=== PATIENT | male | born 1945 | race Caucasian/White ===

== ENCOUNTER 2022-11-13 08:52 | Outpatient (REF) | payer MEDICARE, SELFPAY ==
[2022-11-13 20:55] LABS: HCT 41.4 % (40.0-50.0); HGB 14.5 g/dL (13.5-17.5); MCV 89 fL (80-95); MPV 11.4 fL (8.0-11.0); Platelet Count 292 10^3/uL (130-400); RBC 4.68 10^6/uL (4.36-5.78); RDW-SD 38.5 fL; WBC 6.71 10^3/uL (4.4-10.8)
[2022-11-13 21:11] LABS: ALT 31 U/L (16-63); AST 22 U/L (15-37); Albumin 4.4 g/dL (3.4-5.0); Alkaline Phosphatase 77 U/L (46-116); Anion Gap 10.2 mmol/L (3-11); BUN 18 mg/dL (7-18); Bilirubin, Total 0.4 mg/dL (0.2-1.0); CO2 27.8 mmol/L (21.0-32.0); CREATININE 0.8 mg/dL (0.70-1.30); Calcium 9.1 mg/dL (8.5-10.1); Chloride 93 mmol/L (98-107); Estimated GFR 92.29 (mL/min/1.73m2); Glucose 99 mg/dL (74-106); Potassium 3.1 mmol/L (3.5-5.1); Sodium 131 mmol/L (136-145); Total Protein 7.5 g/dL (6.4-8.2)
[2022-11-14 20:13] LABS: PSA, Diagnostic <0.1 ng/mL (<=6.5)
== END 2022-11-14 08:53 | disposition home or self-care (01) ==
LOC: NCHCN 08:52
PROVIDERS: PCP Family Medicine; Visit Provider Family Medicine
DX: I10 Essential (primary) hypertension (principal); C61 Malignant neoplasm of prostate
CPT/HCPCS: 80053; 85027; 84153

== ENCOUNTER 2023-07-07 13:44 | Outpatient (REF) | payer MEDICARE, BC, SELFPAY ==
[2023-07-07 14:40] LABS: Abs Immature Grans 0.04 10^3/uL (0.0-0.06); Absolute Basophil Count 0.04 10^3/uL (0.0-0.2); Absolute Eosinophil Count 0.13 10^3/uL (0.0-0.7); Absolute Lymphocyte Count 1.01 10^3/uL (1.2-3.4); Absolute Neutrophil Count 3.04 10^3/uL (1.2-6.7); Basophils % 0.8; Eosinophils % 2.6; HCT 41.7 % (40.0-50.0); Immature Grans % 0.8; Lymphocytes % 20.4; MCV 86 fL (80-95); MPV 10.8 fL (8.0-11.0); Monocytes % 14.1; Neutrophils % 61.3; Platelet Count 269 10^3/uL (130-400); RBC 4.84 10^6/uL (4.36-5.78); RDW 12.4 % (11.8-14.1); RDW-SD 39.1 fL; WBC 4.96 10^3/uL (4.4-10.8)
[2023-07-07 14:58] LABS: ALT 31 U/L (16-63); AST 19 U/L (15-37); Albumin 4.4 g/dL (3.4-5.0); Alkaline Phosphatase 73 U/L (46-116); Anion Gap 10.4 mmol/L (3-11); BUN 15 mg/dL (7-18); Bilirubin, Total 0.5 mg/dL (0.2-1.0); CO2 29.6 mmol/L (21.0-32.0); CREATININE 0.7 mg/dL (0.70-1.30); Calcium 9.8 mg/dL (8.5-10.1); Chloride 95 mmol/L (98-107); Estimated GFR 95.49 (mL/min/1.73m2); Glucose 110 mg/dL (74-106); Potassium 3.5 mmol/L (3.5-5.1); Sodium 135 mmol/L (136-145); Total Protein 7.7 g/dL (6.4-8.2)
[2023-07-07 22:57] LABS: PSA, Diagnostic <0.1 ng/mL (<=6.5)
== END 2023-07-07 13:45 | disposition home or self-care (01) ==
LOC: NCHCN 13:44
PROVIDERS: PCP Family Medicine; Visit Provider Family Medicine
DX: I10 Essential (primary) hypertension (principal); C61 Malignant neoplasm of prostate
CPT/HCPCS: 80053; 84153; 85025

== ENCOUNTER 2023-11-24 13:33 | Emergency (ER) | payer MEDICARE, BC, SELFPAY ==
[2023-11-24] VITALS (21 sets, daily range): BP systolic 137–172; BP diastolic 70–100; PULSE 88–124; RESP 18; TEMP 37.7; O2SAT 92–98
[2023-11-24] MEDS: Lidocaine 2% Jelly 6 ML SYR (14:06)
[2023-11-24 14:55] LABS: Bilirubin Negative (Negative); Blood Small (Negative); Clarity Turbid (Clear); Glucose Negative (Negative); Ketones Negative (Negative); Leukocyte Esterase Negative (Negative); Nitrite Negative (Negative); Specific Gravity 1.025 (1.005-1.025); Urobilinogen 0.2 mg/dL (Up to 0.2)
[2023-11-24 14:58] LABS: C & S Indicated? Yes; RBC >50 HPF (0-2)
--- OUTSIDE RECORDS SUMMARY | 2023-11-24 15:15 | XMS_ITS | Data Portability ---
Author Organization [place] - [facility] Address [place] [address] Assessment No assessment recorded. Plan of Treatment Reminders Order Date Submit Date Provider Last Modified By Organization Details Last Modified Time Details Appointments Annual Chronic Care (65+) 30 2024 10:50A M Not available Not available Not available Lab PSA, serum or plasma 2023 024 [facility] (Registration ), [address] [place] [address] [place], [address], 07/08/2023 08:27:46 CBC w/ auto diff - drawn in office. 1 yellow and 1 purple drawn 2023 024 [facility] (Registration ), [address] [place] [address] [place], [address], 07/07/2023 14:42:16 CMP, serum or plasma 2023 024 [facility] (Registration ), [address] [place] [address] [place], [address], 07/07/2023 15:02:17 Referral None recorded. Procedures colonosco py screening (PROC) 2023 024 [facility] Surgery, [address] [place] [address] [place], [address], 11/12/2023 14:20:37 Surgeries None recorded. Imaging None recorded. Medication Orders None recorded. Patient TargetsNo targets recorded. Patient InstructionsNo instructions recorded. Reason for Referral None Reported. Results Created Date Observation Date Name Description Value Unit Range Abnormal Flag Note LastModifiedBy Organization Detail LastModifiedTime 07/07/19 24 07/07/2023 COMPL ETE BLOOD COUNT W/DIF F WBC 4.96 10_3/ uL 4.4-10 .8 normal Not Available [address] [place], [address] 07/07/2023 14:42:16 07/07/19 24 07/07/2023 COMPL ETE BLOOD COUNT W/DIF F RBC 4.84 10_6/ uL 4.36-5 .78 normal Not Available [address] [place], [address] 07/07/2023 14:42:16 07/07/19 24 07/07/2023 COMPL ETE BLOOD COUNT W/DIF F HGB 15.0 g/dL 13.5-1 7.5 normal Not Available [address] [place], [address] 07/07/2023 14:42:16 07/07/19 24 07/07/2023 COMPL ETE BLOOD COUNT W/DIF F HCT 41.7 % 40.0-5 0.0 normal Not Available [address] [place], [address] 07/07/2023 14:42:16 07/07/19 24 07/07/2023 COMPL ETE BLOOD COUNT W/DIF F MCV 86 fL 80-95 normal Not Available [address] [place], [address] 07/07/2023 14:42:16 07/07/19 24 07/07/2023 COMPL ETE BLOOD COUNT W/DIF F MCH 31.0 pg 27.0-3 3.0 normal Not Available [address] [place], [address] 07/07/2023 14:42:16 07/07/19 24 07/07/2023 COMPL ETE BLOOD COUNT W/DIF F MCHC 36.0 % 32.0-3 6.0 normal Not Available [address] [place], [address] 07/07/2023 14:42:16 07/07/19 24 07/07/2023 COMPL ETE BLOOD COUNT W/DIF F RDW 12.4 % 11.8-1 4.1 normal Not Available [address] [place], [address] 07/07/2023 14:42:16 07/07/19 24 07/07/2023 COMPL ETE BLOOD COUNT W/DIF F platelet count 269 10_3/ uL 130-40 0 normal Not Available [address] [place], [address] 07/07/2023 14:42:16 07/07/19 24 07/07/2023 COMPL ETE BLOOD COUNT W/DIF F MPV 10.8 fL 8.0-11 .0 normal Not Available [address] [place], [address] 07/07/2023 14:42:16 07/07/19 24 07/07/2023 COMPL ETE BLOOD COUNT W/DIF F neutrophils % 61.3 Not Available [address] [place], [address] 07/07/2023 14:42:16 07/07/19 24 07/07/2023 COMPL ETE BLOOD COUNT W/DIF F lymphocytes % 20.4 Not Available [address] [place], [address] 07/07/2023 14:42:16 07/07/19 24 07/07/2023 COMPL ETE BLOOD COUNT W/DIF F monocytes % 14.1 Not Available [address] [place], [address] 07/07/2023 14:42:16 07/07/19 24 07/07/2023 COMPL ETE BLOOD COUNT W/DIF F eosinophils % 2.6 Not Available [address] [place], [address] 07/07/2023 14:42:16 07/07/19 24 07/07/2023 COMPL ETE BLOOD COUNT W/DIF F basophils % 0.8 Not Available [address] [place], [address] 07/07/2023 14:42:16 07/07/19 24 07/07/2023 COMPL ETE BLOOD COUNT W/DIF F immature grans % 0.8 Not Available [facility] [address] [place], [address] 07/07/2023 14:42:16 07/07/19 24 07/07/2023 COMPL ETE BLOOD COUNT W/DIF F nucleated RBC 0.0 % 0.0-0. 3 normal Not Available [address] [place], [address] 07/07/2023 14:42:16 07/07/19 24 07/07/2023 COMPL ETE BLOOD COUNT W/DIF F absolute neutrophil count 3.04 10_3/ uL 1.2-6. 7 normal Not Available [address] [place], [address] 07/07/2023 14:42:16 07/07/19 24 07/07/2023 COMPL ETE BLOOD COUNT W/DIF F absolute lymphocyte count 1.01 10_3/ uL 1.2-3. 4 low Not Available [address] [place], [address] 07/07/2023 14:42:16 07/07/19 24 07/07/2023 COMPL ETE BLOOD COUNT W/DIF F absolute monocyte count 0.70 10_3/ uL 0.1-0. 8 normal Not Available [address] [place], [address] 07/07/2023 14:42:16 07/07/19 24 07/07/2023 COMPL ETE BLOOD COUNT W/DIF F absolute eosinophil count 0.13 10_3/ uL 0.0-0. 7 normal Not Available [address] [place], [address] 07/07/2023 14:42:16 07/07/19 24 07/07/2023 COMPL ETE BLOOD COUNT W/DIF F absolute basophil count 0.04 10_3/ uL 0.0-0. 2 normal Not Available [address] [place], [address] 07/07/2023 14:42:16 07/07/19 24 07/07/2023 COMPR EHENS FRANCO METAB OLIC PANEL calcium 9.8 mg/dL 8.5-10 .1 normal Not Available [address] [place], [address] 07/07/2023 15:02:16 07/07/19 24 07/07/2023 COMPR EHENS FRANCO METAB OLIC PANEL glucose 110 mg/dL 74-106 high Not Available Arnoldo pennington [address] [place], [address] 07/07/2023 15:02:16 07/07/19 24 07/07/2023 COMPR EHENS FRANCO METAB OLIC PANEL BUN 15 mg/dL 7-18 normal Not Available Arnoldo rn [address] [place], [address] 07/07/2023 15:02:16 07/07/19 24 07/07/2023 COMPR EHENS FRANCO METAB OLIC PANEL creatinine 0.7 mg/dL 0.70-1 .30 normal Not Available [address] [place], [address] 07/07/2023 15:02:16 07/07/19 24 07/07/2023 COMPR EHENS FRANCO METAB OLIC PANEL estimated GFR 95.49 mL/min /1.73m 2 The eGFR is calcu lated from a serum creat inine using the CKD-E PI 2020 equat ion. Other varia bles requi red for the equat ion are gende r and age; this equat ion does not inclu de a race coeff icien t. This equat ion has simil ar overa ll perfo rmanc e to previ ous equat ions excep t value s may diffe r, in parti cular , in patie nts with highe r value s of eGFR and young er-ag ed adult s. Not Available [address] [place], [address] 07/07/2023 15:02:16 07/07/19 24 07/07/2023 COMPR EHENS FRANCO METAB OLIC PANEL total protein 7.7 g/dL 6.4-8. 2 normal Not Available [address] [place], [address] 07/07/2023 15:02:16 07/07/19 24 07/07/2023 COMPR EHENS FRANCO METAB OLIC PANEL albumin 4.4 g/dL 3.4-5. 0 normal Not Available [address] [place], [address] 07/07/2023 15:02:16 07/07/19 24 07/07/2023 COMPR EHENS FRANCO METAB OLIC PANEL bilirubin, total 0.5 mg/dL 0.2-1. 0 normal Not Available [address] [place], [address] 07/07/2023 15:02:16 07/07/19 24 07/07/2023 COMPR EHENS FRANCO METAB OLIC PANEL alk phos 73 U/L 46-116 normal Not Available [address] [place], [address] 07/07/2023 15:02:16 07/07/19 24 07/07/2023 COMPR EHENS FRANCO METAB OLIC PANEL sodium 135 mmol/ L 136-14 5 low Not Available [address] [place], [address] 07/07/2023 15:02:16 07/07/19 24 07/07/2023 COMPR EHENS FRANCO METAB OLIC PANEL potassium 3.5 mmol/ L 3.5-5. 1 normal Not Available [address] [place], [address] 07/07/2023 15:02:16 07/07/19 24 07/07/2023 COMPR EHENS FRANCO METAB OLIC PANEL chloride 95 mmol/ L 98-107 low Not Available [address] [place], [address] 07/07/2023 15:02:16 07/07/19 24 07/07/2023 COMPR EHENS FRANCO METAB OLIC PANEL CO2 29.6 mmol/ L 21.0-3 2.0 normal Not Available [address] [place], [address] 07/07/2023 15:02:16 07/07/19 24 07/07/2023 COMPR EHENS FRANCO METAB OLIC PANEL anion gap 10.4 mmol/ L 3-11 normal Not Available [address], [place], [address] 07/07/2023 15:02:16 07/07/19 24 07/07/2023 COMPR EHENS FRANCO METAB OLIC PANEL AST 19 U/L 15-37 normal Not Available Arnoldo pennington [address] [place], [address] 07/07/2023 15:02:16 07/07/19 24 07/07/2023 COMPR EHENS FRANCO METAB OLIC PANEL ALT 31 U/L 16-63 normal Not Available Arnoldo pennington [address] [place], [address] 07/07/2023 15:02:16 07/07/19 24 07/07/2023 PSA, DIAGN OSTIC PSA, diagnostic <0.1 NG/mL <=6.5 NOTE: Serum PSA tiffanie ntrat ion shoul d not be inter prete d as absol neeraj evide nce for the prese nce or absen ce of john peña se. Assay ed on Sieme ns ADVIA Centa ur XPT using chemi lumin escen t techn ology . Value s obtai mel by using diffe rent assay metho ds canno t be used inter gama eably . Test perfo rmed or refer red by [facility] [address], [place] [address] Not Available [address] [place], [address] 07/08/2023 08:27:46 Result Notes None recorded. Problems Name Problem SNOMED Code Status Onset Date Resolution Date Notes Provider Name and Address Organization Details Recorded Time Malignan t tumor of prostate 682593223 Active 2016 Prostate ctomy 2017, radiatio n treatmen t Roberto house, [facility]. 4 18:31:55 Essentia l hyperten matias 38201998 Active [address], [place], [address] , [facility]. 4 09:06:26 Arron 306670676 Active 2016 [facility] 4 18:32:05 Erectile dysfunct ion 456338028 Active [address], [facility] [address] [place] [address] 4 09:06:42 Insomnia 387233711 [facility] 2022 [facility] 4 18:31:37 Gastro-e sophagea l reflux disease with esophagi tis 245739649 Active [address], [facility] [address] [place] [address] 4 09:06:34 Adult health examinat ion Active [address], [facility] [address] , [facility] 4 09:06:19 Long-ter m current use of drug therapy 974406200 Completed 202211/16/2022 Problem Code: Z79.899; Problem Code Type: ICD-10; Not Available [facility] 3 05:24:57 Wrist joint pain 302708079 Completed 202211/16/2022 Problem Code: M25.539; Problem Code Type: ICD-10; Not Available [facility] 3 05:24:57 Hypokale drew 28962439 Completed 201611/16/2022 Problem Code: E87.6; Problem Code Type: ICD-10; MD Bra[address]io [address], [facility] [address] , [facility] 4 09:06:31 Hypokale drew 82802029 Active [address], [facility] [address] , [facility] 4 09:06:31 Problem Notes None recorded. Medical Equipment None Reported. Allergies Allergen ID Allergen Name Allergen Category Reaction Reaction Severity Criticality Documentation Date Start Date Code Code System Note Provider Name and Address Organization Details Recorded Time 17261 Bactrim medicatio n Not available Not available Not available 01/30/20232016 61984 9 RxNorm Not Available [facility] 3 16:18:51 Medications Name Sig Start Date Stop Date Status Note LastModified by Organization Details LastModified Time lisinopril 20 mg tablet TAKE 1 TABLET BY MOUTH TWICE DAILY active Not Available Not Available No t Available amlodipine 5 mg tablet TAKE 1 TABLET BY MOUTH TWICE DAILY active Not Available Not Available No t Available aspirin 81 mg tablet,maddison yed release Take 1 tab by mouth daily 11/13 completed Not Available Not Available Not Available potassium chloride ER 20 mEq tablet,exte nded release(par t/cryst) TAKE 1 & 1/2 (ONE & ONE-HALF) BY MOUTH ONCE DAILY active Not Available Not Available No t Available pantoprazol e 40 mg tablet,maddison yed release TAKE 1 TABLET BY MOUTH ONCE DAILY active Not Available Not Available No t Available triamterene 75 mg-hydrochl orothiazide 50 mg tablet TAKE 1 TABLET BY MOUTH ONCE DAILY active Not Available Not Available No t Available metronidazo le 0.75 % topical gel once a day 2016 active Not Available Not Available Not Avai lable azelaic acid 15 % topical gel 1 a small amount to affected area once a day active Not Available Not Available No t Available meclizine 50 mg as needed 07/06 completed Not Available Not Available Not Available potassium chloride ER 20 mEq tablet,exte nded release TAKE 1 & 1/2 (ONE & ONE-HALF) TABLETS BY MOUTH ONCE DAILY active Not Available Not Available No t Available Vitals Date Recorded Body height Body mass index (BMI) Body weight Body temperature Oxygen saturation Oxygen saturation in Arterial blood by Pulse oximetry Heart rate Systolic blood pressure Diastolic blood pressure Provider Name and Address Organization Details Last Updated DateTime 4 182.88 cm 27.5 kg/m2 30391.2 5 g 97.8 [degF] 98 % 98 % 78 /min 138 mm[Hg] 78 mm[Hg] YASMANY TORRES MA [facility] 08:58:54 Social History Question Answer Notes LastModified by Organization Details LastModified Time Tobacco Smoking Status Never Smoker YASMANY TORRES MA null, [facility] 07/07/2023 09:00:01 Are You Currently Employed? No [employer], [employer] Information not available 07/07/2023 What Type Of Diet Are You Following? REGULAR Information not available 07/07/2023 What Do You Do For Fun? Hang With [employer] Information not available 07/07/2023 Would You Say That, In General, Your Health Is Very Good Information not available 07/07/2023 How Often Does Anyone, Including Family, Physically Hurt You? Never Information not available 07/07/2023 How Often Does Anyone, Including Family, Insult Or Talk Down To You? Never Information not available 07/07/2023 How Often Does Anyone, Including Family, Threaten You With Harm? Never Information not available 07/07/2023 How Often Does Anyone, Including Family, Scream Or Curse At You? Never Information not available 07/07/2023 Within The Past 12 Months, You Worried That Your Food Would Run Out Before You Got Money To Buy More. Never True Information not available 07/07/2023 Within The Past 12 Months, The Food You Bought Just Didn't Last And You Didn't Have Money To Get More. Never True Information not available 07/07/2023 How Hard Is It For You To Pay For The Very Basics Like Food, Housing, Medical Care, And Heating? Would You Say It Is: Not Hard At All Information not available 07/07/2023 In The Past 12 Months, Has Lack Of Reliable Transportation Kept You From Medical Appointments, Meetings, Work Or From Getting Things Needed For Daily Living? No Information not available 07/07/2023 What Is Your Housing Situation Today? I Have Housing. Information not available 07/07/2023 Who Do You Live With? Girlfriend Information not available 07/07/2023 How Often In The Past Year Have You Used Marijuana (including Smoking, Vaping, Dabbing, Or Edibles)? Never Information not available 07/07/2023 How Often In The Past Year Have You Used Prescription Medications That Were Not Prescribed To You? Never Information not available 07/07/2023 How Often In The Past Year Have You Taken Your Own Prescription Medication More Than The Way It Was Prescribed Or For Different Reasons Than Its Intended Purpose? Never Information not available 07/07/2023 How Often In The Past Year Have You Used Other Drugs (for Example, Heroin, Cocaine, Meth, Salvia, Inhalants)? Never Information not available 07/07/2023 Have You Ever Used IV Drugs? No Information not available 07/07/2023 Date Of Most Recent SBINS 07/07/2023 Information not available 07/07/2023 What Was The Date Of Your Most Recent Tobacco Screening? 07/07/2023 Information not available 07/07/2023 What Is Your Relationship Status? Domestic Partner Information not available 07/07/2023 Are You Currently In School? No Information not available 07/07/2023 Do You Have Any Dietary Restrictions? No Information not available 07/07/2023 Sex: Male Functional Status Question Answer Note LastModified by Organizat ion Details LastModified Time What is your exercise level? Occasional Information not available 07/07/2023 Mental Status None recorded. Family History Relationship Description Onset Age of this Age Resolved Age Notes Brother Family history of acute medical disorder primary sclerosi ng choleangitis Mother Family history of acute medical disorder suicide at 55 Father Family history of kidney disease Notes:*Problem: 0 Medical History No medical history recorded. Immunizations Vaccine Type Date Status Provider Name and Address Organization Details Recorded Time Tdap 07/21/2017 completed Not Available [facility] 05:19:19 Tdap 09/15/2016 completed Not Available [facility] 05:19:19 Pneumococcal Conjugate, unspecified formulation 08/16/2013 completed Not Available [facility] 01/30/2023 05:19:20 SARS-COV-2 (COVID-19) vaccine, UNSPECIFIED 05/22/2020 completed Not Available [facility] 01/30/2023 05:19:22 SARS-COV-2 (COVID-19) vaccine, UNSPECIFIED 06/20/2020 completed Not Available [facility] 01/30/2023 05:19:22 SARS-COV-2 (COVID-19) vaccine, UNSPECIFIED 07/08/2021 completed Not Available [facility] 01/30/2023 05:19:22 SARS-COV-2 (COVID-19) vaccine, UNSPECIFIED 10/01/2020 completed Not Available [facility] 01/30/2023 05:19:22 pneumococcal polysaccharide PPV23 03/23/2011 completed Not Available [facility] 2022 05:19:22 pneumococcal polysaccharide PPV23 01/27/2008 completed Not Available [facility] 2022 05:19:23 influenza, unspecified formulation 11/22/2015 completed Not Available [facility] 01/30/2023 05:19:23 influenza, unspecified formulation 03/04/2021 completed Not Available [facility] 01/30/2023 05:19:23 Past Encounters Encounter ID Performer Location Encounter Start Date Encounter Closed Date Diagnosis/Indication Diagnosis SNOMED-CT Code Diagnosis ICD10 Code [id number] SHARON ALVARADO MD [address] [address] 07/07/2023 08:44:10 07/07/2023 11:47:02 Adult health examination 994078537 Z00.00 Essential hypertension 81062959 I10 Hypokalemia 79482642 E87 .6 Gastro-eso phageal reflux disease with esophagitis 288172483 K21.00 Malignant tumor of prostate 927091627 C61 Rosacea 457259834 L71.9 Health Concerns Section Related Observation LastModified by Organization Detai ls LastModified Time None Recorded Concern Status LastModified by Organization Details LastModified Time None Recorded Advance Directives Directive None Recorded Payers Encounter Date Sequence Insurance Name Policy Number Policy Barr Covered Member ID Barr Member ID Guarantor Name 07/07/2023 1 [place]: [employer] Jose Rodriguez [id number] Jose Rodriguez 07/07/2023 2 [facility] [facility] [id number] Jose Rodriguez [id number] Jose Rodriguez Notes Date Note Type Note Provider Name and Address Organization Details Recorded Time 07/07/2023 text/html HPI Notes: Job nt here for his annual preventive visit and follow-up for his chronic issues including hypertension reflux. It turns out are attempted to switch him from Dyazide to triamterene failed because of extreme colmenares issues. He has continued on his Dyazide. He is due for annual labs including his potassium. Past history of prostate cancer, it appears no one is following his PSAs will run that as well. SHARON ALVARADO MD [address], [place], [address], [facility]. 07/10/2023 20:46:12
--- NOTE | 2023-11-24 15:30 | W.ED.GENAD ---
Discharge Plan Disposition Patient Disposition: Home Condition: Stable Discharge Details Clinical Impression: Hematuria Primary Care Provider: Joceline Starr ED Provider: Jake Mallory Home Meds and New Rx's Prescriptions: No Action lisinopril 20 mg tablet 20 mg PO BID amlodipine 5 mg tablet 5 mg PO BID aspirin 81 mg tablet,delayed release (DR/EC) 81 mg PO DAILY potassium chloride 20 mEq tablet extended release 30 meq PO DAILY pantoprazole 40 mg tablet,delayed release (DR/EC) 40 mg PO DAILY triamterene-hydrochlorothiazid 75-50 mg tablet 1 tab PO DAILY metronidazole 0.75 % cream 1 applic topical DAILY azelaic acid 15 % gel 1 applic topical BID Discharge Instructions Instructions: How to Care for Your Oh Catheter, Blood in Urine (Hematuria), Adult ED Additional Instructions: The blood in your bladder may clot and prevent outflow of your urine, if this occurs, he should return to the emergency department for irrigation and reevaluation Urology clinic will contact you for follow-up HPI General Date/Time Provider Initiated Documentation: 11/24/23 13:43. Limitations to Documentation: no limitations. Information obtained by: patient. HPI Narrative: 78-year-old gentleman with past medical history including hypertension, prostate malignancy (s/p removal and radiation therapy) presents for evaluation of hematuria. He reports the symptoms started today. He reports that he was able to urinate normally this morning, and then later he was unable to go. He had a little blood come out. He states that he feels like his bladder is full but he cannot pass anything. Denies any fever or chills. When he got into the room, he states that he did have some release of urine and blood and states that he does feel a little bit better Related Data Home Medications ?Medication ?Instructions ?Recorded ?Confirmed amlodipine 5 mg tablet 5 mg PO BID 08/04/23 11/24/23 aspirin 81 mg tablet,delayed 81 mg PO DAILY 08/04/23 11/24/23 release azelaic acid 15 % topical gel 1 applic topical BID 08/04/23 11/24/23 lisinopril 20 mg tablet 20 mg PO BID 08/04/23 11/24/23 metronidazole 0.75 % topical cream 1 applic topical DAILY 08/04/23 11/24/23 pantoprazole 40 mg tablet,delayed 40 mg PO DAILY 08/04/23 11/24/23 release potassium chloride 20 mEq 30 meq PO DAILY 08/04/23 11/24/23 tablet,extended release triamterene 75 1 tab PO DAILY 08/04/23 11/24/23 mg-hydrochlorothiazide 50 mg tablet Allergies Allergy/AdvReac Type Severity Reaction Status Date / Time sulfamethoxazole (From Allergy Unknown unknown Verified 11/24/23 13:39 Bactrim) trimethoprim (From Bactrim) Allergy Unknown unknown Verified 11/24/23 13:39 General Stated Complaint: Urinary MIKEL: 3 Exam Narrative Exam Narrative: Review of Systems: All systems reviewed & are unremarkable except as noted in HPI and below Well-developed, no acute distress Unlabored respiratory effort Nondistended abdomen , mild suprapubic tenderness : blood in diaper noted, no blood at urethral meatus Course Vital Signs Vital signs: Vital Signs Temperature 37.7 C H 11/24/23 13:37 Pulse 124 H 11/24/23 13:37 Respiratory Rate 18 11/24/23 13:37 Blood Pressure 172/83 H 11/24/23 13:37 Pulse Oximetry 97 11/24/23 13:37 Temperature 37.7 C H 11/24/23 13:37 Temperature Source Skin 11/24/23 13:37 Pulse 97 H 11/24/23 14:36 Pulse 104 H 11/24/23 14:10 Respiratory Rate 18 11/24/23 13:37 Blood Pressure 147/80 H 11/24/23 14:36 Blood Pressure Mean 103 11/24/23 14:36 Blood Pressure Position Sitting 11/24/23 13:37 Pulse Oximetry 95 11/24/23 14:36 Oxygen Delivery Method Room Air 11/24/23 13:37 Oxygen Flow Rate 0 11/24/23 13:37 Pain Level 8 11/24/23 13:37 Lab/Test Results Lab/Test Results: 11/24/23 14:35 Urine - Reflex from Ua Urine Culture - Pending Laboratory Tests Range/Units 11/24/23 14:35 Urine Color (Yellow) Red Urine Clarity (Clear) Turbid Urine pH (5-8) 7.0 Ur Specific [place] (1.005-1.025) 1.025 Urine Protein (Neg-Trace) mg/dL 100 H Urine Ketones (Negative) mg/dL Negative Urine Blood (Negative) Small H Urine Nitrite (Negative) Negative Urine Bilirubin (Negative) Negative Urine Urobilinogen (Up to 0.2) mg/dL 0.2 Ur Leukocyte Esterase (Negative) Negative Urine RBC (0-2) HPF >50 H Urine WBC Not Applicable Ur Epithelial Cells Not Applicable Urine Crystals Not Applicable Urine Bacteria Not Applicable Urine Mucus Not Applicable Ur Culture Indicated? Yes Urine Glucose (Negative) mg/dL Negative Medical Decision Making Emergent evaluation of hematuria. Patient does have significant prostate malignancy history. He does report having some postradiation lesions that required cautery. He is not on any anticoagulant, states he is noncompliant with daily aspirin. There is blood noted in his diaper, but he is unable to spontaneously void so Oh catheter will be placed patient will be monitored. Patient reports improvement in symptoms after Oh catheter placement. Has a nontender abdomen. His urinalysis was reviewed, he does have significant blood, but no other signs concerning for infection. Bladder was irrigated to a light pink and patient has very clear return precautions for guarding clotting and catheter malfunction. Given his high risk and need for cystoscopy, the patient has been placed on urology follow-up, and I have requested that he be seen in the next 1 to 2 days. The urology clinic will contact the patient with his appointment. Patient states that he feels great now and I have advised close follow-up and return precautions. Quality:SDOH Health Related Social Needs: No Data to Display PFSH All Active Problems (Updated 11/24/23 @ 15:36 by Jake Mallory MD) Hematuria (Acute) Essential hypertension (Acute) Malignant tumor of prostate (Chronic) Medical History GERD (gastroesophageal reflux disease) Insomnia Erectile dysfunction Rosacea Social History Smoking risk assessment performed?: No
== END 2023-11-24 15:54 | disposition home or self-care (01) ==
PROVIDERS: Emergency Provider Emergency Medicine; PCP Family Medicine
DX: R33.8 Other retention of urine (principal); R31.9 Hematuria, unspecified
CPT/HCPCS: 51700; 99284; 81003; 81015; 87086; 99283

== ENCOUNTER 2023-11-25 02:15 | Emergency (ER) | payer MEDICARE, BC, SELFPAY ==
[2023-11-25] VITALS (17 sets, daily range): BP systolic 128–180; BP diastolic 64–92; PULSE 66–88; RESP 16–22; TEMP 36.5–36.8; O2SAT 97–98
--- NOTE | 2023-11-25 02:19 | W.ED.GENAD ---
Discharge Plan Discharge Details Chief Complaint: Urinary Clinical Impression: Hematuria, Guillen catheter problem, Hypokalemia, Chronic hyponatremia Primary Care Provider: Joceline Starr ED Provider: Tran Rueda Home Meds and New Rx's Prescriptions: No Action lisinopril 20 mg tablet 20 mg PO BID amlodipine 5 mg tablet 5 mg PO BID aspirin 81 mg tablet,delayed release (DR/EC) 81 mg PO DAILY potassium chloride 20 mEq tablet extended release 30 meq PO DAILY pantoprazole 40 mg tablet,delayed release (DR/EC) 40 mg PO DAILY triamterene-hydrochlorothiazid 75-50 mg tablet 1 tab PO DAILY metronidazole 0.75 % cream 1 applic topical DAILY azelaic acid 15 % gel 1 applic topical BID HPI General Mode of arrival: EMS. Date/Time Provider Initiated Documentation: 11/25/23 02:19. Limitations to Documentation: no limitations. Information obtained by: patient, EMS and old records reviewed (ED visit note 11/24/23). HPI Narrative: 78yo M with hx prostate ca presenting for clogged guillen cathter. Was seen in this ED yesterday afternoon for urinary retention and hematuira; guillen was placed and he was discharged with plan for urology guillen up. Overnight began to full bladder fullness and like he needed to void, catheter did not seem to be draining and there was blood in the tube. Otherwise in his usual state of health with no fevers, chills, rash, dysuria, abdominal pain, lightheadedness, or other concerns. Related Data Home Medications ?Medication ?Instructions ?Recorded ?Confirmed amlodipine 5 mg tablet 5 mg PO BID 08/04/23 11/25/23 aspirin 81 mg tablet,delayed 81 mg PO DAILY 08/04/23 11/25/23 release azelaic acid 15 % topical gel 1 applic topical BID 08/04/23 11/25/23 lisinopril 20 mg tablet 20 mg PO BID 08/04/23 11/25/23 metronidazole 0.75 % topical cream 1 applic topical DAILY 08/04/23 11/25/23 pantoprazole 40 mg tablet,delayed 40 mg PO DAILY 08/04/23 11/25/23 release potassium chloride 20 mEq 30 meq PO DAILY 08/04/23 11/25/23 tablet,extended release triamterene 75 1 tab PO DAILY 08/04/23 11/25/23 mg-hydrochlorothiazide 50 mg tablet Allergies Allergy/AdvReac Type Severity Reaction Status Date / Time sulfamethoxazole (From Allergy Unknown unknown Verified 11/25/23 02:24 Bactrim) trimethoprim (From Bactrim) Allergy Unknown unknown Verified 11/25/23 02:24 General MIKEL: 3 Review of Systems Narrative: see HPI Exam Narrative Exam Narrative: General: Alert, well appearing, well nourished, in no acute distress. Head: Normocephalic, atraumatic Neck: Trachea midline, ?Neck supple. Cardiac: ?RRR, no murmurs appreciated Resp: No respiratory distress. Speaking in full sentences. Abd: ?Soft, non-distended, nontender : ?Mild suprapubic tenderness. No CVA tenderness. Extremities: ?No deformities.? No peripheral edema. Neurologic: GCS 15. ? Moves all extremities freely against gravity Medical Decision Making 78yo M with hx prostate ca presenting for clogged guillen cathter. Was seen in this ED yesterday afternoon for urinary retention and hematuira; guillen was placed and he was discharged with plan for urology guillen up. Overnight began to full bladder fullness and like he needed to void, catheter did not seem to be draining and there was blood in the tube. Hypertensive on arrival, vital signs otherwise reassuring. Bladder scan on arrival ~600ccs, guillen with blood clot in tube, catheter quite low (possibly displaced). Guillen removed and small amount of urine began to drain from urethra. Guillen replaced; drained ~300cc dark red urine. Irrigated copiously for multiple clots. ED records reviewed, urine ~12 hours ago with hematuria, otherwise not suggestive of infection, was sent for culture. Little utility to repeating UA now, given persistent hematuria will evaluate for anemia and coagulopathy with labs while waiting on urine to clear. Labs reviewed as below, CBC reassuring with no significant anemia or thrombocytopenia, coags normal, BMP with normal Cr however new hypokalemia at 2.6 and hyponatremia at 129. On [facility] record review labs over past two years more typically in borderline-low/low-normal range for these, 3.1-3.5 and 131-135 respectively. Patient is on HCTZ as well as potassium supplementation at home. EKG ordered and reassuring. Oral replacement ordered for K (will give 40meq PO now and again in 1 hour) no symptomatic hyponatremia so will advise PCP followup regarding this as well as his BP diuretics and K dosage. On reassessment guillen draining well, urine remains quite red. No further clots. Will give 1L IVFB to facilitate urine clearing. Repeat potassium improved to 3.1. On reassessment continued bright red hematuria, thin, no clots. Not concerned for hemodynamcially significant bleeding however degree/persistence of hematuria raises concern for recurrent clot if patient discharged home. Dr. Loaiza (urology) not available today. Plan to call urology clinic when they open at 0800, ideally patient to be seen this morning. Signed out to oncoming physician, plan as above. Medical Records Medical records reviewed: Yes I reviewed the patient's medical records. Lab Data Lab results reviewed: Yes I reviewed the patient's lab results. Labs: Laboratory Tests Range/Units 11/25/23 11/25/23 02:32 02:45 WBC (4.4-10.8) 10^3/uL 7.84 RBC (4.36-5.78) 10^6/uL 4.51 Hgb (13.5-17.5) g/dL 14.1 Hct (40.0-50.0) % 39.6 L MCV (80-95) fL 88 MCH (27.0-33.0) pg 31.3 MCHC (32.0-36.0) % 35.6 RDW (11.8-14.1) % 12.3 Plt Count (130-400) 10^3/uL 228 MPV (8.0-11.0) fL 9.7 Immature Gran % % 0.8 Neutrophils % % 72.5 Lymphocytes % % 14.9 Monocytes % % 10.2 Eosinophils % % 1.1 Basophils % % 0.5 Nucleated RBC % (0.0-0.3) % 0.0 Absolute Neutrophils (1.2-6.7) 10^3/uL 5.68 Absolute Lymphocytes (1.2-3.4) 10^3/uL 1.17 L Absolute Monocytes (0.1-0.8) 10^3/uL 0.80 Absolute Eosinophils (0.0-0.7) 10^3/uL 0.09 Absolute Basophils (0.0-0.2) 10^3/uL 0.04 PT (9.1-11.1) sec 11.1 INR (0.9-1.1) 1.1 APTT (23.6-32.8) sec 27.6 Sodium (136-145) mmol/L 129 L Potassium (3.5-5.1) mmol/L 2.6 L* Chloride (98-107) mmol/L 92 L Carbon Dioxide (21.0-32.0) mmol/L 28.2 Anion Gap (3-11) mmol/L 8.8 BUN (7-18) mg/dL 15 Creatinine (0.70-1.30) mg/dL 0.7 Est GFR (CKD-EPI 2020) (mL/min/1.73m2) 95.49 Glucose (74-106) mg/dL 118 H Calcium (8.5-10.1) mg/dL 9.2 Quality:[facility] Health Related Social Needs: No Data to Display PFSH All Active Problems (Updated 11/25/23 @ 07:14 by Tran Rueda MD) Chronic hyponatremia (Acute) Hypokalemia (Acute) Guillen catheter problem (Acute) Hematuria (Acute) Essential hypertension (Acute) Malignant tumor of prostate (Chronic) Medical History GERD (gastroesophageal reflux disease) Insomnia Erectile dysfunction Rosacea Social History Smoking/Tobacco Use Status: Never Smoking risk assessment performed?: Yes Alcohol Intake: current Alcohol Intake frequency: 3 or more drinks per day Alcohol type: beer Substance use type: does not use Housing: house
[2023-11-25 02:48] LABS: Abs Immature Grans 0.06 10^3/uL (0.0-0.06); Absolute Basophil Count 0.04 10^3/uL (0.0-0.2); Absolute Eosinophil Count 0.09 10^3/uL (0.0-0.7); Absolute Lymphocyte Count 1.17 10^3/uL (1.2-3.4); Absolute Neutrophil Count 5.68 10^3/uL (1.2-6.7); Basophils % 0.5 %; Eosinophils % 1.1 %; HCT 39.6 % (40.0-50.0); HGB 14.1 g/dL (13.5-17.5); Immature Grans % 0.8 %; Lymphocytes % 14.9 %; MCH 31.3 pg (27.0-33.0); MCHC 35.6 % (32.0-36.0); MCV 88 fL (80-95); MPV 9.7 fL (8.0-11.0); Monocytes % 10.2 %; Neutrophils % 72.5 %; Platelet Count 228 10^3/uL (130-400); RBC 4.51 10^6/uL (4.36-5.78); RDW 12.3 % (11.8-14.1); RDW-SD 39.7 fL; WBC 7.84 10^3/uL (4.4-10.8)
[2023-11-25 02:51] LABS: Anion Gap 8.8 mmol/L (3-11); BUN 15 mg/dL (7-18); CO2 28.2 mmol/L (21.0-32.0); CREATININE 0.7 mg/dL (0.70-1.30); Calcium 9.2 mg/dL (8.5-10.1); Chloride 92 mmol/L (98-107); Estimated GFR 95.49 (mL/min/1.73m2); Glucose 118 mg/dL (74-106); Sodium 129 mmol/L (136-145)
--- NOTE | 2023-11-25 03:00 | RT.EKG_ITS ---
APPROVED REPORT Exam: Resting ECG Reason for Exam: hypokalemia Patient Location: E HR:68 bpm ECG Measurements Heart Rate 68 AXIS TX 176 P 50 QRSd 84 QRS 46 QT 419 T 36 QTc 447 Conclusion Sinus rhythm...normal P axis, V-rate 60- 99 Ventricular premature complex...V complex w/ short R-R interval appropriate intervals no ST segment or T wave abnormaliteis to suggest occlusive RI
[2023-11-25 03:02] LABS: Potassium 2.6 mmol/L (3.5-5.1)
[2023-11-25 03:07] LABS: INR 1.1 (0.9-1.1); PTT Activated 27.6 sec (23.6-32.8); Prothrombin Time 11.1 sec (9.1-11.1)
[2023-11-25] MEDS: Potassium Chloride Liquid 20 MEQ PKT 40 MEQ PO ×2 (03:27→03:34)
--- NOTE | 2023-11-25 03:29 | NUR.NOTE ---
EKG took a little longer, had to shave patient's hairy chest.
[2023-11-25] MEDS: Normal Saline 1,000 ML 1000 ML IV (05:01)
[2023-11-25 05:29] LABS: Potassium 3.1 mmol/L (3.5-5.1)
[2023-11-25] MEDS: Lidocaine 2% Jelly 6 ML SYR ×2 (09:17)
[2023-11-25] MEDS: Lidocaine 2% Jelly 11 ML SYR (09:17)
--- NOTE | 2023-11-25 10:23 | W.EDPROG ---
Date of service: 11/25/23 Time of Service: 10:23 Medical Decision Making Given extent of hematuria, continuous bladder irrigation was initiated, Guillen catheter was removed and replaced with three-way Guillen catheter by Renae Desouza NP of urology team. Patient has been irrigated with multiple liters now clear; Guillen to be left in place to leg bag. Patient to follow-up with urology to schedule cystoscopy. Patient nakul medically stable no acute distress Quality:SDOH Health Related Social Needs: No Data to Display Sign Out Sign Out Data: Sign Out Comment: Prostate Ca, guillen placed yesterday for urinary retention, presented overnight with hematuria/clot in guillen. Catheter changed, continued bright red hematuria not clearing overnight. HDS. CBC reassuring, BMP with chronic hyponatremia as well as K of 2.6 which improved to >3 after PO repletion. Plan to discuss with urology when office open, ideally send to early am urology appointment upon discharge. Last updated by Tran Rueda MD at 11/25/23 07:17 Discharge Plan Disposition Patient Disposition: Home Condition: Improving Discharge Details Chief Complaint: Urinary Clinical Impression: Hematuria, Guillen catheter problem, Hypokalemia, Chronic hyponatremia Primary Care Provider: Joceline Starr ED Provider: Dayday Mcmanus Home Meds and New Rx's Prescriptions: No Action lisinopril 20 mg tablet 20 mg PO BID amlodipine 5 mg tablet 5 mg PO BID aspirin 81 mg tablet,delayed release (DR/EC) 81 mg PO DAILY potassium chloride 20 mEq tablet extended release 30 meq PO DAILY pantoprazole 40 mg tablet,delayed release (DR/EC) 40 mg PO DAILY triamterene-hydrochlorothiazid 75-50 mg tablet 1 tab PO DAILY metronidazole 0.75 % cream 1 applic topical DAILY azelaic acid 15 % gel 1 applic topical BID Discharge Instructions Instructions: Blood in the urine (hematuria) in adults, Guillen Catheter Additional Instructions: Please follow-up with urology team to schedule uroscopy. Please return to the emergency department for any worsening symptoms
--- NOTE | 2023-11-25 16:19 | W.UROLOGYCON ---
Date of service: 11/25/23 Time of Service: 08:15 Assessment and Plan Assessment and plan (1) Hematuria: Status: Acute Assessment and plan: Discussion with patient prior to inserting catheter, he notes that his prostate cancer recurred when he was in [place]. Prostatectomy as well as radiation treatment were done in [place] in 2013. Patient to have continuous bladder irrigation via the emergency room. If unable to clear hematuria/clots would recommend patient to be admitted for continuous irrigation. Patient will then need cystoscopy to evaluate hematuria/bleeding area for cauterization. ER will update as needed. Dictation was done by [employer] voice recognition. Errors may be present within the note. A total of 25 minutes was spent reviewing this patient's EMR, [id number] time, and documenting. (2) Guillen catheter problem: Status: Acute History of Present Illness Narrative: Jose is a 78-year-old male with history pertinent to the situation of prostate cancer that was seen yesterday through the emergency room and had catheter placed due to urinary retention. There was note of hematuria with clots. Patient was discharged home with catheter in place. However he bounced back to the emergency room this morning due to a full bladder and catheter not draining. Emergency room provider contacted urology with concerns about need for continuous bladder irrigation. There was also note that there was difficulty with exchanging Guillen catheter to a three-way catheter. Patient denies fevers, chills, nausea, vomiting, flank pain or penile discomfort. He did note suprapubic discomfort and fullness over his bladder. Consults Consult date: 11/25/23 Requesting physician: Dayday Mcmanus Review of Systems Narrative: As HPI PFSH All Active Problems (Updated 11/25/23 @ 07:14 by Tran Rueda MD) Chronic hyponatremia (Acute) Hypokalemia (Acute) Guillen catheter problem (Acute) Hematuria (Acute) Essential hypertension (Acute) Malignant tumor of prostate (Chronic) Medical History GERD (gastroesophageal reflux disease) Insomnia Erectile dysfunction Rosacea Social History Smoking/Tobacco Use Status: Never Smoking risk assessment performed?: Yes Alcohol Intake: current Alcohol Intake frequency: 3 or more drinks per day Alcohol type: beer Substance use type: does not use Housing: house Exam Const Orientation: alert, awake and oriented x3 Eyes Sclera: sclerae normal Resp Effort & Inspection: normal respiratory effort GI Inspection: normal to inspection and non-distended Palpation: tender suprapubicly Other: Circumcised Results Last Vital Signs Temp 98.2 F 11/25/23 11:24 Pulse 88 11/25/23 11:24 Resp 22 11/25/23 11:24 BP 157/92 H 11/25/23 11:24 Pulse Ox 98 11/25/23 11:24 Labs 11/25/23 02:32 11/25/23 05:05 Labs: Laboratory Results - last 24 hr 11/25/23 11/25/23 11/25/23 02:32 02:45 05:05 WBC 7.84 RBC 4.51 Hgb 14.1 Hct 39.6 L MCV 88 MCH 31.3 MCHC 35.6 RDW 12.3 Plt Count 228 MPV 9.7 Immature Gran % 0.8 Neutrophils % 72.5 Lymphocytes % 14.9 Monocytes % 10.2 Eosinophils % 1.1 Basophils % 0.5 Nucleated RBC % 0.0 Absolute Neutrophils 5.68 Absolute Lymphocytes 1.17 L Absolute Monocytes 0.80 Absolute Eosinophils 0.09 Absolute Basophils 0.04 PT 11.1 INR 1.1 APTT 27.6 Sodium 129 L Potassium 2.6 L* 3.1 L Chloride 92 L Carbon Dioxide 28.2 Anion Gap 8.8 BUN 15 Creatinine 0.7 Est GFR (CKD-EPI 2020) 95.49 Glucose 118 H Calcium 9.2 Insert Bladder Catheter Procedure performed by: Renae Bird Indication for procedure: Yes Informed consent given: Yes Position of patient: supine Sterilizing agent: Yes Type of anesthesia: topical gel Catheter size (Fr): 20 Catheter type: guillen (3 way) Lubrication: Yes Volume instilled into catheter balloon: 30cc Urine color: red Irrigation: Yes (Continuous) Patient tolerated procedures: well Complications: No
== END 2023-11-25 11:24 | disposition home or self-care (01) ==
PROVIDERS: Student in an Organized Health Care Education/Training Program; Emergency Provider Emergency Medicine; PCP Family Medicine
DX: R31.9 Hematuria, unspecified (principal); T83.9XXA Unspecified complication of genitourinary prosthetic device, implant and graft, initial encounter; E87.6 Hypokalemia; E87.1 Hypo-osmolality and hyponatremia
CPT/HCPCS: 00123; 36415; 51700; 51798; 80048; 93005; 96360; 96361; 99284; 84132; 85014; 85018; 85025; 85610; 85730; 93010; 99283; J3490

== ENCOUNTER → 2023-11-25 17:49 | Emergency (ER) | payer MEDICARE, BC, SELFPAY ==
[2023-11-25 17:51] VITALS: BP 140/80; PULSE 97; RESP 16; TEMP 36.6; O2SAT 100
--- NOTE | 2023-11-25 19:56 | ED.GENADUL_ITS ---
Discharge Plan Disposition Patient Disposition: Home Condition: Stable Discharge Details Clinical Impression: Guillen catheter problem Primary Care Provider: Jocelnie Starr ED Provider: Nuno Smith Home Meds and New Rx's Prescriptions: Continued lisinopril 20 mg tablet 20 mg PO BID amlodipine 5 mg tablet 5 mg PO BID aspirin 81 mg tablet,delayed release (DR/EC) 81 mg PO DAILY potassium chloride 20 mEq tablet extended release 30 meq PO DAILY pantoprazole 40 mg tablet,delayed release (DR/EC) 40 mg PO DAILY triamterene-hydrochlorothiazid 75-50 mg tablet 1 tab PO DAILY metronidazole 0.75 % cream 1 applic topical DAILY azelaic acid 15 % gel 1 applic topical BID Discharge Instructions Instructions: How to Care for Your Guillen Catheter Additional Instructions: You were seen in the emergency department for obstructed Guillen catheter at prior visit today. He had some paz hematuria and passage of clots but your urine is improving in color, we did check your blood and I do not suspect any significant hemorrhage. This needs to be seen by urology but there is no emergent concern for overnight observation at this time. Your pain is likely due to mechanical trauma to the area while the Guillen was placed. I am sending you home with a to go pack of oxycodone, you may take 1000 mg of Tylenol every 6 hours as well, he received both of these medications in the ED this evening. Opioid pain medications can cause constipation so have sent you home with a dose of MiraLAX if you have not passed stool and are having any abdominal pain you might try this at home. I will place you on the follow-up list for urology please call their office for have not heard from them by midday tomorrow. Please return to the emergency department for increasing abdominal distention with failure to have any output in your Guillen catheter, fever, nausea, weakness, other emergent concerns. Referrals: [facility] [Provider Group] Joceline Starr [Primary Care Provider] - HPI General Date/Time Provider Initiated Documentation: 11/25/23 18:00 . HPI Narrative: 78 year-old male presents to ED today by POV/ambulating with a chief complaint of clogged guillen catheter- placed for retention/hematuria, left the ED today- Urology was unavailable to consult, with onset again of noted obstruction of cath this evening, some abdominal pain- and some penile pain as he had underwent significant effort to have this guillen placed. Quality described as dark red urine, penile discomfort, denies flank pain, no radiation to fever, nausea, weakness, chest pain, shortness of breath, black/bloody stools. Severity is described as moderate. Palliating factors include nothing attempted. Provoking factors include nothing specific. Events leading up to the incident/Associated Symptoms: patient has planned cystoscopy with Urology. Patient not anticoagulated. Related Data Home Medications ?Medication ?Instructions ?Recorded ?Confirmed amlodipine 5 mg tablet 5 mg PO BID 08/04/23 11/26/23 aspirin 81 mg tablet,delayed 81 mg PO DAILY 08/04/23 11/26/23 release azelaic acid 15 % topical gel 1 applic topical BID 08/04/23 11/26/23 lisinopril 20 mg tablet 20 mg PO BID 08/04/23 11/26/23 metronidazole 0.75 % topical cream 1 applic topical DAILY 08/04/23 11/26/23 pantoprazole 40 mg tablet,delayed 40 mg PO DAILY 08/04/23 11/26/23 release potassium chloride 20 mEq 30 meq PO DAILY 08/04/23 11/26/23 tablet,extended release triamterene 75 1 tab PO DAILY 08/04/23 11/26/23 mg-hydrochlorothiazide 50 mg tablet Allergies Allergy/AdvReac Type Severity Reaction Status Date / Time sulfamethoxazole (From Allergy Unknown unknown Verified 11/26/23 00:55 Bactrim) trimethoprim (From Bactrim) Allergy Unknown unknown Verified 11/26/23 00:55 General Stated Complaint: Recheck MIKEL: 3 Review of Systems All systems reviewed & are unremarkable except as noted in HPI and below Exam Narrative Exam Narrative: GENERAL APPEARANCE: Well-nourished, non-toxic, awake and alert, atraumatic, no acute distress. SKIN: Warm, pink, dry, intact, without rashes/lesions/ulcerations. HEAD: Normocephalic, atraumatic, normal hair distribution for gender/age. EYES: Normal conjunctiva, no exudates on lids/lashes. ENT: Nares patent, no circumoral cyanosis, no facial swelling NECK: Supple, trachea midline, painless cervical ROM. LUNGS/CHEST: Non-labored respirations, normal A/P diameter, symmetrical expansion, no chest wall deformity HEART (CV/PV): No peripheral edema, no JVD. ABDOMEN: Soft, non-distended, no guarding, mild suprapubic discomfort, no CVA tenderness bilaterally to percussion, no purulent drainage from urethral meatus. MSK: Normal ROM, no swelling/deformity to bilateral UEs or LEs, moving all extremities without weakness, no cyanosis, spine midline without tenderness, normal curvature. NEURO: Mental Status AAOx4 - alert to person, place, time, events No facial droop, no forehead involvement. Motor: No focal weakness - strength 5/5 in bilateral UEs and LEs, proximal and distal, symmetric. Sensory: sensation intact to light touch globally. Gait normal: patient ambulated without ataxia into ED room. PSYCH: euthymic, cooperative, pleasant, appropriate speech Course Vital Signs Vital signs: Vital Signs Temperature 36.6 C 11/25/23 17:51 Pulse 97 H 11/25/23 17:51 Respiratory Rate 16 11/25/23 17:51 Blood Pressure 140/80 11/25/23 17:51 Pulse Oximetry 100 11/25/23 17:51 Temperature 36.6 C 11/25/23 17:51 Pulse 97 H 11/25/23 17:51 Respiratory Rate 16 11/25/23 17:51 Respiratory Effort Normal 11/25/23 17:56 Blood Pressure 140/80 11/25/23 17:51 Pulse Oximetry 100 11/25/23 17:51 Oxygen Delivery Method Room Air 11/25/23 17:51 Oxygen Flow Rate 0 11/25/23 17:51 Pain Level 6 11/25/23 17:51 Medical Decision Making This dictation utilizes [id number] dictation software and may contain unedited grammatical errors. 78 year-old male presents to ED today by POV/ambulating with a chief complaint of clogged guillen catheter- placed for retention/hematuria, left the ED today- Urology was unavailable to consult, with onset again of noted obstruction of cath this evening, some abdominal pain- and some penile pain as he had underwent significant effort to have this guillen placed. Quality described as dark red urine, penile discomfort, denies flank pain, no radiation to fever, nausea, weakness, chest pain, shortness of breath, black/bloody stools. Severity is described as moderate. Palliating factors include nothing attempted. Provoking factors include nothing specific. Events leading up to the incident/Associated Symptoms: patient has planned cystoscopy with Urology. Patients' medical history: Hypertension, malignant tumor of prostate. Family and social history: Noncontributory. Pertinent exam findings / vital signs include mild abdominal distention, no purulent drainage from urethra, no CVA tenderness bilaterally. Differential / pathologies of concern include malignancy, UTI, BPH with outflow obstruction. Diagnostic studies of: -H&H checked-do not suspect hemorrhage with ongoing hematuria for days and normal hemoglobin. Interventions of: -Guillen catheter was flushed and entire contents of bladder removed, was flushed a second time with passage of some clots, monitored over the course of 2.5 hours with significant decrease in the darkness of his output to a very light pink with continuous flow. ED Course/Assessment/Plan: 78-year-old male presents with obstructed urinary catheter, he was here earlier today for similar complaint and was about to be consulted on by urology who were called away to surgical procedure. He returns with obstructed urinary catheter and some paz hematuria. We did flush his catheter, prior to this he did a foreign 25 mL in his bladder, did come out paz red in color, he later passed another 100 or so milliliters with some clots and as his catheter continued to drain the output became much enterprise integration developer pink in color. He had some irritation to the urethra and penis from significant effort it took to place catheter at prior visit and I did send him home with to go pack of oxycodone as well as MiraLAX for any constipation that could develop. I assured him that I will place him on the urology call list so that they could follow-up with him tomorrow. Patient was reluctant to go home but I assured him that we did check his blood and I did does not suspicious for any kind of hemorrhage and that his catheter was operating properly, his vital signs were stable and reasonable to be discharged home. The patient was appreciative of the to-go meds and will return for any emergent concerns. Findings not consistent with hemorrhage, unresolved urinary retention/guillen obstruction. Disposition of Guillen Catheter Problem. Patient verbalized understanding of the plan and return to ED criteria and engaged in shared decision making. Medical Records Medical records reviewed: Yes I reviewed the patient's medical records. Lab Data Lab results reviewed: Yes I reviewed the patient's lab results. Labs: Laboratory Tests Range/Units 11/25/23 20:22 Hgb (13.5-17.5) g/dL 13.5 Hct (40.0-50.0) % 38.4 L Quality:SDOH Health Related Social Needs: No Data to Display PFSH All Active Problems (Updated 11/26/23 @ 11:03 by Michele Loaiza MD) Clot retention of urine (Acute) Guillen catheter problem (Acute) Chronic hyponatremia (Acute) Hypokalemia (Acute) Guillen catheter problem (Acute) Hematuria (Acute) Essential hypertension (Acute) Malignant tumor of prostate (Chronic) Medical History GERD (gastroesophageal reflux disease) Insomnia Erectile dysfunction Rosacea Social History Smoking/Tobacco Use Status: Never Smoking risk assessment performed?: Yes Alcohol Intake: current Alcohol Intake frequency: 3 or more drinks per day Alcohol type: beer Substance use type: does not use Housing: house
[2023-11-25 20:27] LABS: HCT 38.4 % (40.0-50.0); HGB 13.5 g/dL (13.5-17.5)
[2023-11-25 21:03] VITALS: BP 153/81; PULSE 78; RESP 18; TEMP 37; O2SAT 97
[2023-11-25] MEDS: Acetaminophen 500 MG TAB 1000 MG PO (21:11)
== END | disposition home or self-care (01) ==
LOC: ER 21:43 → RED 22:45
PROVIDERS: Emergency Provider Physician Assistant; PCP Family Medicine
DX: R31.9 Hematuria, unspecified (principal); T83.9XXA Unspecified complication of genitourinary prosthetic device, implant and graft, initial encounter
CPT/HCPCS: 36415; 51700; 51798; 99284; 85014; 85018; 99283; J3490

== ENCOUNTER 2023-11-26 00:55 | Day surgery (SDC) | payer MEDICARE, BC, SELFPAY ==
[2023-11-26] VITALS (35 sets, daily range): BP systolic 110–203; BP diastolic 51–100; PULSE 58–82; RESP 12–20; TEMP 36.2–36.7; O2SAT 88–98; BMI 28.5
--- NOTE | 2023-11-26 00:55 | ED.GENADUL_ITS ---
Discharge Plan Discharge Details Chief Complaint: Urinary Primary Care Provider: Joceline Starr ED Provider: Tran Rueda Home Meds and New Rx's Prescriptions: No Action lisinopril 20 mg tablet 20 mg PO BID amlodipine 5 mg tablet 5 mg PO BID aspirin 81 mg tablet,delayed release (DR/EC) 81 mg PO DAILY potassium chloride 20 mEq tablet extended release 30 meq PO DAILY pantoprazole 40 mg tablet,delayed release (DR/EC) 40 mg PO DAILY triamterene-hydrochlorothiazid 75-50 mg tablet 1 tab PO DAILY metronidazole 0.75 % cream 1 applic topical DAILY azelaic acid 15 % gel 1 applic topical BID HPI General Mode of arrival: EMS . Date/Time Provider Initiated Documentation: 11/26/23 01:02 . Limitations to Documentation: no limitations . Information obtained by: patient and old records reviewed . HPI Narrative: 78yo M with HTN, prostate cancer, recent guillen placement for urinary retention and subsequent hematuria with multiple ED visits for hematuria/guillen not draining most recently discharged several hours ago presenting via EMS with concern for clogged guillen. Feels mild fullness in his bladder and minimal drainage in his leg bag over the past two hours. No abdominal pain. Urine remains bright red. Otherwise in his usual state of health. Related Data Home Medications ?Medication ?Instructions ?Recorded ?Confirmed amlodipine 5 mg tablet 5 mg PO BID 08/04/23 11/25/23 aspirin 81 mg tablet,delayed 81 mg PO DAILY 08/04/23 11/25/23 release azelaic acid 15 % topical gel 1 applic topical BID 08/04/23 11/25/23 lisinopril 20 mg tablet 20 mg PO BID 08/04/23 11/25/23 metronidazole 0.75 % topical cream 1 applic topical DAILY 08/04/23 11/25/23 pantoprazole 40 mg tablet,delayed 40 mg PO DAILY 08/04/23 11/25/23 release potassium chloride 20 mEq 30 meq PO DAILY 08/04/23 11/25/23 tablet,extended release triamterene 75 1 tab PO DAILY 08/04/23 11/25/23 mg-hydrochlorothiazide 50 mg tablet Allergies Allergy/AdvReac Type Severity Reaction Status Date / Time sulfamethoxazole (From Allergy Unknown unknown Verified 11/26/23 00:55 Bactrim) trimethoprim (From Bactrim) Allergy Unknown unknown Verified 11/26/23 00:55 General Stated Complaint: Urinary MIKEL: 3 Review of Systems Narrative: see HPI Exam Narrative Exam Narrative: General: Alert, well appearing, well nourished, in no acute distress. Head: Normocephalic, atraumatic Neck: Trachea midline, ?Neck supple. Cardiac: ?No cyanosis Resp: No respiratory distress. Speaking in full sentences. Abd: ?Soft, non-distended, nontender : ?No suprapubic tenderness. Guillen in place, small amount bright red urine in bag. Extremities: ?No deformities.? No peripheral edema. Neurologic: GCS 15. ? Moves all extremities freely against gravity Course Vital Signs Vital signs: Vital Signs Temperature 36.7 C 11/26/23 00:50 Pulse 82 11/26/23 00:50 Respiratory Rate 18 11/26/23 00:50 Blood Pressure 203/81 H 11/26/23 00:50 Pulse Oximetry 98 11/26/23 00:50 Temperature 36.7 C 11/26/23 00:50 Temperature Source Temporal Artery Scan 11/26/23 00:50 Pulse 82 11/26/23 00:50 Respiratory Rate 18 11/26/23 00:50 Respiratory Effort Normal, Non-Labored 11/26/23 00:54 Blood Pressure 203/81 H 11/26/23 00:50 Blood Pressure Position Sitting 11/26/23 00:50 Pulse Oximetry 98 11/26/23 00:50 Oxygen Delivery Method Room Air 11/26/23 00:50 Oxygen Flow Rate 0 11/26/23 00:50 Medical Decision Making 78yo M with HTN, prostate cancer, recent guillen placement for urinary retention and subsequent hematuria with multiple ED visits for hematuria/guillen not draining most recently discharged several hours ago presenting via EMS with concern for clogged guillen. See previous ED visit notes and urology consult note for prior course. Hypertensive on arrival, vital signs otherwise reassuring. No abdominal tenderness. Bright red urine in leg bag. Bladder scan for ~90cc. Leg bag changed for larger bag in preparation for possible bladder irrigation, subsequently noted to be draining well with thin bright red urine. Does not appear to be retaining currently, no clear clot in old tubing. Discussed with patient, he is quite concerned about catheter re-clotting as it prior urinary distension was very uncomfortable. When he was discharged from the ED yesterday during the day his urine was airline reservationist/clearer than it was this evening or is currently. He would prefer continuos bladder irrigation which is not unreasonable. Hct at 2021 yesterday stable, would not repeat again this morning. Will irrigate bladder and observe in the ED; if urine clears may be appropriate for discharge to urology followup in the morning. If continued significant hematuria may need admission for continuos irrigation and possible cytoscopy. Bladder continuously irrigated overnight, urine clearing to light pink however still requiring frequent flushing/removal of clots. Highly suspect will clot/clog again if discharged home, and pt with 4 ED visits in the last 48 hours. Urology not available overnight; will contact in the morning. Signed out to oncoming physician, plan to continue bladder irrigation, consult [facility] urology when available. Quality:SDOH Health Related Social Needs: No Data to Display PFSH All Active Problems (Updated 11/25/23 @ 21:36 by DANYELL Arias) Guillen catheter problem (Acute) Chronic hyponatremia (Acute) Hypokalemia (Acute) Guillen catheter problem (Acute) Hematuria (Acute) Essential hypertension (Acute) Malignant tumor of prostate (Chronic) Medical History GERD (gastroesophageal reflux disease) Insomnia Erectile dysfunction Rosacea Social History Smoking/Tobacco Use Status: Never Smoking risk assessment performed?: Yes Alcohol Intake: current Alcohol Intake frequency: 3 or more drinks per day Alcohol type: beer Substance use type: does not use Housing: house
--- NOTE | 2023-11-26 02:03 | NUR.NOTE ---
Nursing Note: started the continuous bladder irrigation. flowing freely. Call button in hand.
--- NOTE | 2023-11-26 05:41 | NUR.NOTE ---
Nursing Note: Urine is now light pink tinged.
--- NOTE | 2023-11-26 06:54 | NUR.NOTE ---
Nursing Note: Hand off report to BEAU Freeman
--- NOTE | 2023-11-26 07:00 | DI.CT_ITS ---
Exam(s) CT ABDOMEN PELVIS WO EXAM: CT ABDOMEN PELVIS WO CLINICAL HISTORY: hematuria, eval kidneys. TECHNIQUE: Imaging Protocol: Axial computed tomography images with coronal and sagittal reformatted images were created and reviewed. COMPARISON: No exams were available for comparison FINDINGS: ABDOMEN: Lung Bases: Coronary artery calcifications are present. Liver: Normal density. There is a 2.4 cm cyst in the right lobe of the liver. No suspicious hepatic masses are seen. Gallbladder and biliary tract: No radiodense calculus or biliary ductal dilation. Pancreas: Normal density, no abnormal calcifications or inflammatory process. Spleen: Normal. Kidneys: Normal size, contour and axis.No radiodense stones or obstructive uropathy. There is a 2.4 c m left parapelvic cyst. There is a 2.4 cm hypodensity in the mid cortex of the left kidney. It does not meet the criteria for simple cyst. Adrenal glands: No mass is seen. Lymph nodes: Within normal limits. Abdominal Aorta: Abdominal portion non-dilated. Atherosclerotic calcification is present. PELVIS: Bladder:There is a Oh catheter in the decompressed urinary bladder. There is a small amount of ai r in the urinary bladder likely reflecting catheterization. There is soft tissue thickening posterio rly in the urinary bladder dome posterior to the Oh catheter. Bladder mass should be considered. Bowel: No obstruction or bowel wall thickening. Appendix is unremarkable. Peritoneal cavity: No ascites, collection or mesenteric inflammatory response. No free air. Reproductive organs: Unremarkable as visualized. Bones: Within normal limits. Chronic right hip deformity is noted. There is L5 spondylolysis without significant spondylolisthesis. Age-appropriate degenerative changes are present throughout the lumb ar spine. Soft Tissues: Within normal limits. IMPRESSION: 1. No evidence of nephrolithiasis or hydronephrosis. 2. Soft tissue thickening seen along the posterior wall of the urinary bladder measuring 2.7 x 1.5 cm . Differential considerations include bladder mass, inflammation or hematoma/clot. Please correlate with patient's clinical history. Urology consult is recommended. 3. 2.4 cm hypodensity in the mid left kidney. It does not meet criteria for simple cyst. Nonemergen t MRI of the kidney without and with contrast is recommended for further evaluation. Unexpected findings RADIATION DOSE DELIVERED: 522.75mGy.cm Total DLP DATA REPOSITORY: All CT scans at this facility are submitted to the National Radiology Data Registry (NRDR) Dose Index Registry (DIR) with the [employer] (A[employer]). RADIATION OPTIMIZATION: All CT scans at this facility use at least one of these dose optimization te chniques: automated exposure control; mA and/or kV adjustment per patient size (includes targeted exa ms where dose is matched to clinical indication); or iterative reconstruction.
[2023-11-26 08:39] LABS: Abs Immature Grans 0.04 10^3/uL (0.0-0.06); Absolute Basophil Count 0.03 10^3/uL (0.0-0.2); Absolute Eosinophil Count 0.18 10^3/uL (0.0-0.7); Absolute Lymphocyte Count 1.01 10^3/uL (1.2-3.4); Absolute Monocyte Count 0.78 10^3/uL (0.1-0.8); Absolute Neutrophil Count 4.03 10^3/uL (1.2-6.7); Basophils % 0.5 %; HCT 38.9 % (40.0-50.0); HGB 13.8 g/dL (13.5-17.5); Immature Grans % 0.7 %; Lymphocytes % 16.6 %; MCH 31.4 pg (27.0-33.0); MCHC 35.5 % (32.0-36.0); MCV 89 fL (80-95); MPV 9.6 fL (8.0-11.0); Monocytes % 12.9 %; Neutrophils % 66.3 %; Platelet Count 244 10^3/uL (130-400); RBC 4.39 10^6/uL (4.36-5.78); RDW 12.5 % (11.8-14.1); RDW-SD 41.2 fL; WBC 6.07 10^3/uL (4.4-10.8)
[2023-11-26 08:56] LABS: Anion Gap 9.4 mmol/L (3-11); BUN 12 mg/dL (7-18); CO2 29.6 mmol/L (21.0-32.0); CREATININE 0.8 mg/dL (0.70-1.30); Calcium 9.1 mg/dL (8.5-10.1); Chloride 94 mmol/L (98-107); Estimated GFR 91.72 (mL/min/1.73m2); Glucose 116 mg/dL (74-106); Sodium 133 mmol/L (136-145)
[2023-11-26 09:00] LABS: Potassium 2.6 mmol/L (3.5-5.1)
--- NOTE | 2023-11-26 09:00 | RT.EKG_ITS ---
APPROVED REPORT Exam: Resting ECG Reason for Exam: hypoK Patient Location: E HR:63 bpm ECG Measurements Heart Rate 63 AXIS NJ 150 P 34 QRSd 107 QRS 48 QT 439 T 15 QTc 449 Conclusion Sinus rhythm...normal P axis, V-rate 60- 99 Normal sinus rhythm at a rate of 63 with interventricular conduction delay and a QRS of 107 ms. Norm al axis. Intervals within normal limits. No ST segment abnormalities. No T wave inversions. T wav e flattening in V2 has improved compared to prior. Prior dated yesterday.
--- NOTE | 2023-11-26 09:06 | W.EDPROG ---
Date of service: 11/26/23 Time of Service: 09:06 Medical Decision Making I received signout on this 38-year-old male with history of indwelling catheter malignant tumor prostate pending urology likely operative intervention. Patient has received CBI overnight. I obtained labs and patient was found to be markedly hypokalemic with a serum potassium of 2.6 for which I ordered IV repletion and EKG to assess QTc. 9:37 AM EKG reassuring. I spoke with Dr. Loaiza who agreed graciously to accept the patient to the OR today. Patient will be an add-on case. Will keep patient n.p.o. 4 PM Patient left from the ED to the OR. Quality:SDME Health Related Social Needs: No Data to Display Sign Out Sign Out Data: Sign Out Comment: 78M, prostate cancer, persistent hematuria/guillen obstruction. 4 ED visits in the last 48 hours. Cont. bladder irrigation overnight now with pink urine rather than frequently bloody but also with frequent clots noted. Hemodynamically stable. Spoke with Dr. Loaiza who will come see pt, requested CT abd/pelvis non con which was ordered. Last updated by Tran Rueda MD at 11/26/23 07:16 Discharge Plan Disposition Patient Disposition: Admit to [facility] Discharge Details Attending Provider: Michele Loaiza Primary Care Provider: Joceline Starr ED Provider: Jose Treadwell
--- NOTE | 2023-11-26 09:55 | W.PM.HP.N ---
Date of service: 11/26/23 Time of Service: 10:58 Assessment and Plan Assessment and plan (1) Hematuria: Status: Acute (2) Malignant tumor of prostate: Status: Chronic (3) Clot retention of urine: Status: Acute Assessment and plan: We will plan for a cystoscopy and clot evacuation. We will be prepared to do transurethral resection fulguration of any underlying bladder abnormality. Hopefully, he will not require continuous bladder irrigation following the procedure and he could be discharged to home. Otherwise, he will need to stay overnight for continuous bladder irrigation with the planned discharge tomorrow. History of Present Illness History of Present Illness Chief Complaint: Clot retention Narrative: This is a 78-year-old gentleman who is new to our practice. He has a history of prostate cancer that was treated with radical prostatectomy in 2013. A few years later, his PSA vicky and he received external beam radiation. While in [place], he had an episode of gross hematuria and underwent cystoscopy with biopsy of bladder lesions. He was told the lesions were related to the radiation, not to malignancy. He has had multiple emergency department visits for hematuria requiring catheters. He had no dysuria prior to the onset of his hematuria. His urine culture from 11/24/2023 shows no uropathogens. The catheters tend to occlude and he returns to the ER. He was housed in the emergency department overnight with continuous bladder irrigation and the providers contacted me this morning for an evaluation. He has no history of kidney stones. He has no additional history of urologic surgery. I requested a noncontrast CT scan and there is soft tissue density within the bladder. No solid upper tract masses are obvious. He is agreeable to cystoscopy, clot evacuation and possible transurethral resection/fulguration of any underlying mucosal abnormalities Review of Systems Narrative: No fevers or chills No vision change or dysphasia No diabetes or thyroid dysfunction No shortness of breath, cough or hemoptysis No chest pain or palpitations GERD. No hepatitis, ulcers, jaundice No seizures, strokes or peripheral neuropathy No bleeding disorders or anemia No gout PFSH All Active Problems (Updated 11/26/23 @ 11:03 by Michele Loaiza MD) Clot retention of urine (Acute) Oh catheter problem (Acute) Chronic hyponatremia (Acute) Hypokalemia (Acute) Oh catheter problem (Acute) Hematuria (Acute) Essential hypertension (Acute) Malignant tumor of prostate (Chronic) Medical History GERD (gastroesophageal reflux disease) Insomnia Erectile dysfunction Rosacea Social History Smoking/Tobacco Use Status: Never Smoking risk assessment performed?: Yes Alcohol Intake: current Alcohol Intake frequency: 3 or more drinks per day Alcohol type: beer Substance use type: does not use Housing: house Meds Allergies and Home Medications Allergies Allergy/AdvReac Type Severity Reaction Status Date / Time sulfamethoxazole (From Allergy Unknown unknown Verified 11/26/23 00:55 Bactrim) trimethoprim (From Bactrim) Allergy Unknown unknown Verified 11/26/23 00:55 Home Medications ?Medication ?Instructions ?Recorded ?Confirmed ?Type amlodipine 5 mg tablet 5 mg PO BID 08/04/23 11/26/23 History aspirin 81 mg tablet,delayed 81 mg PO DAILY 08/04/23 11/26/23 History release azelaic acid 15 % topical gel 1 applic topical BID 08/04/23 11/26/23 History lisinopril 20 mg tablet 20 mg PO BID 08/04/23 11/26/23 History metronidazole 0.75 % topical cream 1 applic topical DAILY 08/04/23 11/26/23 History pantoprazole 40 mg tablet,delayed 40 mg PO DAILY 08/04/23 11/26/23 History release potassium chloride 20 mEq 30 meq PO DAILY 08/04/23 11/26/23 History tablet,extended release triamterene 75 1 tab PO DAILY 08/04/23 11/26/23 History mg-hydrochlorothiazide 50 mg tablet Exam Const General: cooperative Neck Neck: supple Resp Effort & Inspection: normal respiratory effort Auscultation: clear to auscultation bilaterally Cardio Rate: regular rate Rhythm: regular rhythm GI Palpation: soft and no masses Neuro General: patient alert, patient awake and patient oriented x3 Results Labs 11/26/23 08:30 11/26/23 08:30 Labs: Laboratory Results - last 24 hr 11/26/23 08:30 WBC 6.07 RBC 4.39 Hgb 13.8 Hct 38.9 L MCV 89 MCH 31.4 MCHC 35.5 RDW 12.5 Plt Count 244 MPV 9.6 Immature Gran % 0.7 Neutrophils % 66.3 Lymphocytes % 16.6 Monocytes % 12.9 Eosinophils % 3.0 Basophils % 0.5 Nucleated RBC % 0.0 Absolute Neutrophils 4.03 Absolute Lymphocytes 1.01 L Absolute Monocytes 0.78 Absolute Eosinophils 0.18 Absolute Basophils 0.03 Sodium 133 L Potassium 2.6 L* Chloride 94 L Carbon Dioxide 29.6 Anion Gap 9.4 BUN 12 Creatinine 0.8 Est GFR (CKD-EPI 2020) 91.72 Glucose 116 H Calcium 9.1 Last Vital Signs Temp 36.7 C 11/26/23 00:50 Pulse 59 L 11/26/23 06:31 Resp 18 11/26/23 00:50 BP 133/60 11/26/23 06:31 Pulse Ox 89 L 11/26/23 06:38 Time Spent Time spent with Patient: 55-74 minutes Time was spent: preparing to see the patient(eg.review tests), obtaining and/or reviewing separately otained hiistory, ordering medications,tests, procedures, referring, communicating with other health childcare center director, counseling the patient and care coordination
[2023-11-26] MEDS: POTASSIUM CHLORIDE/0.9% NACL 1,000 ML 500 MEQ IV (09:56)
--- NOTE | 2023-11-26 10:04 | ANES.PREOP_ITS ---
General Info Date of Service Date Performed: 11/26/23 Height: 5 ft 11 in Weight: 92.986 kg Body Mass Index (BMI): 28.5 Surgical Procedure: Operation Date: 11/26/23 13:25 Proposed Procedure Side Surgeon p Cysto, clot evacuation, possible Transurethral Resection Bladder Tumor Michele Loaiza MD Meds Allergies and Home Medications Allergies Allergy/AdvReac Type Severity Reaction Status Date / Time sulfamethoxazole (From Allergy Unknown unknown Verified 11/26/23 00:55 Bactrim) trimethoprim (From Bactrim) Allergy Unknown unknown Verified 11/26/23 00:55 Home Medication ?Medication ?Instructions ?Recorded amlodipine 5 mg tablet 5 mg PO BID 08/04/23 aspirin 81 mg tablet,delayed 81 mg PO DAILY 08/04/23 release azelaic acid 15 % topical gel 1 applic topical BID 08/04/23 lisinopril 20 mg tablet 20 mg PO BID 08/04/23 metronidazole 0.75 % topical cream 1 applic topical DAILY 08/04/23 pantoprazole 40 mg tablet,delayed 40 mg PO DAILY 08/04/23 release potassium chloride 20 mEq 30 meq PO DAILY 08/04/23 tablet,extended release triamterene 75 1 tab PO DAILY 08/04/23 mg-hydrochlorothiazide 50 mg tablet Current Visit Medications: Current Medications Generic Name Dose Route Start Last Admin Trade Name Freq PRN Reason Stop Dose Admin Potassium Chloride/Sodium Chloride 1,000 mls @ 500 mls/hr 11/26/23 09:15 11/26/23 09:56 Kcl 20meq/Ns IV 11/26/23 11:25 500 mls/hr INFUSION MARTHA Administration PFS Active Problems Active Problems: Problem Status Onset Code Oh catheter problem Acute T83.9XXA Chronic hyponatremia Acute E87.1 Hypokalemia Acute E87.6 Oh catheter problem Acute T83.9XXA Hematuria Acute R31.9 Essential hypertension Acute I10 Malignant tumor of prostate Chronic C61 Medical History Medical History GERD (gastroesophageal reflux disease) Insomnia Erectile dysfunction Rosacea Tobacco Smoking/Tobacco Use Status: Never Alcohol Alcohol Intake: current Alcohol intake frequency: 3 or more drinks per day Alcohol type: beer Substance Use Substance use type: does not use Vital Signs and Lab Results Vital Signs Most Recent Vital Signs in EMR: Most Recent Vital Signs Temp Pulse Resp BP Pulse Ox 36.7 C 59 L 18 133/60 89 L 11/26/23 00:50 11/26/23 06:31 11/26/23 00:50 11/26/23 06:31 11/26/23 06:38 Vital Signs Comment Vital Signs Comment:: Pulse oximeter check while interviewing patient in ER, SpO2 97%, patient reports he did not have the probe on well prior. Lab Results 11/26/23 08:30 11/26/23 08:30 Blood Type / Crossmatch: 2 Antibody Screen Pending 11/26/23 Complete Blood Count: 2 White Blood Count 6.07 10^3/uL (4.4-10.8) 11/26/23 08:30 Red Blood Count 4.39 10^6/uL (4.36-5.78) 11/26/23 08:30 Hemoglobin 13.8 g/dL (13.5-17.5) 11/26/23 08:30 Hematocrit 38.9 % (40.0-50.0) L 11/26/23 08:30 Platelet Count 244 10^3/uL (130-400) 11/26/23 08:30 Complete Metabolic Panel: 2 Sodium 133 mmol/L (136-145) L 11/26/23 08:30 Potassium 2.6 mmol/L (3.5-5.1) L* 11/26/23 08:30 Chloride 94 mmol/L (98-107) L 11/26/23 08:30 Carbon Dioxide 29.6 mmol/L (21.0-32.0) 11/26/23 08:30 BUN 12 mg/dL (7-18) 11/26/23 08:30 Creatinine 0.8 mg/dL (0.70-1.30) 11/26/23 08:30 Est GFR (CKD-EPI 2020) 91.72 (mL/min/1.73m2) 11/26/23 08:30 Calcium 9.1 mg/dL (8.5-10.1) 11/26/23 08:30 Glucose 116 mg/dL (74-106) H 11/26/23 08:30 Liver Function Panel: 2 No Data to Display Coagulation Panel: 2 INR International Normalized Ratio 1.1 (0.9-1.1) 11/25/23 02:4 5 Prothrombin Time 11.1 sec (9.1-11.1) 11/25/23 02:45 Activated Partial Thromboplast Time 27.6 sec (23.6-32.8) 02:45 Cardiac Panel: 2 No Data to Display Arterial Blood Gas: 2 No Data to Display Venous Blood Gas: 2 No Data to Display Pancreas Panel: 2 No Data to Display Thyroid Panel: 2 No Data to Display Infectious Disease: 2 No Data to Display Blood Cultures: 2 No Data to Display Toxicology Panel: 2 No Data to Display Imaging and Studies Imaging and Studies Study information below may be from another EMR and interpreted by another provider. Please see original notes in EMR for more complete details. EKG Summary: 11/26/2023: Exam: Resting ECG Reason for Exam: hypoK Patient Location: E HR:63 bpm ECG Measurements Heart Rate 63 AXIS IN 150 P 34 QRSd 107 QRS 48 QT 439 T15 QTc 449 Conclusion Sinus rhythm...normal P axis, V-rate 60- 99 Normal sinus rhythm at a rate of 63 with interventricular conduction delay and a QRS of 107 ms. Normal axis. Intervals within normal limits. No ST segment abnormalities. No T wave inversions. T wave flattening in V2 has improved compared to prior. Prior dated yesterday. I have reviewed and I agree with the emergency room physician's ECG interpretation. Anesthesia Assessment and Plan Anesthesia History Personal History: No History of Anesthesia Complications Family History: No Family History of Anesthesia Complications Exercise Tolerance Exercise Tolerance: Metabolic Equivalents>4 Pertinent Negatives Pertinent Negatives: No Major Cardiovascular Symptoms or Complaints and No Major Pulmonary Symptoms or Complaints Cardiac & Pulmonary Exam Cardiac Exam: Normal S1/S2 Heart Sounds Pulmonary Exam: Clear Bilateral Breath Sounds Implantable Cardiac Device Does patient have a Pacemaker or an ICD?: No Airway Exam Known Difficult Airway: No Mallampati Class: 2 Mouth Opening: Normal (> 3cm) Thyromental Distance: Greater than 3 cm Facial Hair: Full Diop Neck Range of Motion: Full ROM Neck Circumference: Normal Teeth Condition: Normal Dentition (front teeth small chips) ASA Classification ASA Score: ASA 2 Emergency Case?: Yes NPO Status NPO Status: NPO Clears >2 hours, Solids >8 hours Anesthesia Plan Resuscitation Status: Full Code Anesthesia Technique: General Anesthesia Airway Planned: Natural Airway Monitors Used: Standard Monitors Preoperative Comments:: Patient relocated from [place] in the last year, but reports he did not follow up with any specialists in that area. Potassium being replaced currently.
[2023-11-26] MEDS: ceFAZolin 2 GM/50 ML BAG IVPB (12:16)
[2023-11-26] MEDS: Lactated Ringers 1,000 ML 80 ML IV (12:16)
[2023-11-26] MEDS: Lactated Ringers 1,000 ML 30 ML IV (13:31)
[2023-11-26] MEDS: Lidocaine 2% Jelly 11 ML SYR (14:07)
--- NOTE | 2023-11-26 14:16 | W.PM.DSUDISC ---
Date of service: 11/26/23 Time of Service: 14:16 Discharge Plan Disposition Patient Disposition: Home Condition: Stable Discharge Details Reason For Visit: Cystoscopy Attending Provider: Michele Loaiza Primary Care Provider: Joceline Starr Home Meds and New Rx's Prescriptions: No Action lisinopril 20 mg tablet 20 mg PO BID amlodipine 5 mg tablet 5 mg PO BID aspirin 81 mg tablet,delayed release (DR/EC) 81 mg PO DAILY potassium chloride 20 mEq tablet extended release 30 meq PO DAILY pantoprazole 40 mg tablet,delayed release (DR/EC) 40 mg PO DAILY triamterene-hydrochlorothiazid 75-50 mg tablet 1 tab PO DAILY metronidazole 0.75 % cream 1 applic topical DAILY azelaic acid 15 % gel 1 applic topical BID Discharge Instructions Additional Instructions: Follow-up appointment in 4 to 6 weeks, sooner if you notice blood in the urine returning Activity:: Activity as Tolerated Shower/Bathe:: 24 hours Diet:: As Tolerated Discharge Orders Discharge Orders: Discharge Order (Routine); Ordered 11/26/23 Ordered By: Michele Loaiza DS: Diagnosis Discharge Diagnosis (1) Hematuria: Status: Acute (2) Malignant tumor of prostate: Status: Chronic (3) Clot retention of urine: Status: Acute
--- NOTE | 2023-11-26 14:21 | W.PM.OP ---
Date of service: 11/26/23 Time of Service: 14:21 Operative Note Operative Note DATE OF PROCEDURE: 11/26/23 PRE-OP DIAGNOSIS: Clot retention POST-OP DIAGNOSIS: same PROCEDURE: cystoscopy, clot evacuation, fulguration of bladder ulcers SURGEON: Michele Loaiza ANESTHESIA TYPE: Local By Surgeon and General:No Airway Refer to Anesthesia Record ESTIMATED BLOOD LOSS: 5 PATHOLOGY: none sent Patient was transported to: PACU Patient's condition: stable Implants: none Indications: This is a 78-year-old gentleman who has a history of prostate cancer. He was treated with a laparoscopic radical prostatectomy back in 2013. His PSA apparently began to rise a few years later, so he received external beam radiation. He had 1 episode of gross hematuria in the past. When he was seen by a urologist, cystoscopy showed 2 suspicious areas in the bladder. 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 The bleeding stopped with cauterization. He has since relocated to our area. He has had several emergency room visits for hematuria with clots and clot retention. He had a noncontrast CT scan that showed no obvious solid upper tract mass. There was some solid material within the bladder. 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 After successful induction of general anesthesia without intubation, he was placed in the dorsal lithotomy position. His indwelling catheter was removed. 2% Xylocaine jelly was instilled into the urethra to act as a local anesthetic. A 22 English rigid cystoscope was passed through the urethra into the bladder. The urethra and bladder were inspected with the 30 degree lens. The pendulous, bulbar membranous urethra appeared normal with no strictures. No clot was seen in the urethra. The prostatic urethra was surgically absent. There was a mild bladder neck contraction at the site of his anastomosis. The bladder neck was entered and multiple small clots were seen within the bladder. The clots were evacuated with a Jessica syringe. There were few areas of erythematous mucosa especially posteriorly but there is no evidence of bladder tumor. No papillary or nodular lesions were seen. Rather, the lesions appeared more ulcerated and consistent with radiation cystitis. I then removed the cystoscope and passed a 24 English resectoscope sheath through the urethra into the bladder. I used a vaporization button and cauterized the erythematous mucosa. The bladder was then emptied and the scope was removed. The patient tolerated this procedure well with no complications.
--- NOTE | 2023-11-26 14:46 | W.ANESPOSTOP ---
Postoperative Evaluation Date, Time and Location Date Performed: 11/26/23 Time Performed: 14:46 Patient Location: Day Surgery Unit Vital Signs Most Recent Imported Vital Signs: Most Recent Vital Signs Temp Pulse Resp BP Pulse Ox 36.5 C 60 14 152/72 H 98 11/26/23 14:42 11/26/23 14:35 11/26/23 14:40 11/26/23 14:35 11/26/23 14:40 Pain Score Most Recent Pain Score: Most Recent Pain Score Pain Level 0 11/26/23 14:42 Assessment Mental Status: Awake (Alert & Oriented to Patient Baseline) Airway and Respiratory Function: Patent airway with normal (patient baseline) respiratory exam Cardiovascular Function: Hemodynamically Stable Hydration Status: Adequately Hydrated Nausea & Vomiting: No Nausea or Vomiting Pain: Pt. Denies Any Pain Peripheral Nerve Block: Patient did not receive a nerve block
[2023-11-26] MEDS: Phenazopyridine 200 MG TAB PO (15:35)
== END 2023-11-26 16:05 | disposition home or self-care (01) ==
LOC: ER 09:36 → SUR 13:31
PROVIDERS: Emergency Provider Emergency Medicine; PCP Family Medicine; Visit Provider Urology
PROC: 0TBB8ZZ Excision of Bladder, Via Natural or Artificial Opening Endoscopic (ICD-10-PCS; CPT 52001; principal; 2023-11-26 13:15)
DX: N30.41 Irradiation cystitis with hematuria (principal); Y84.2 Radiological procedure and radiotherapy as the cause of abnormal reaction of the patient, or of later complication, without mention of misadventure at the time of the procedure; R33.9 Retention of urine, unspecified; C61 Malignant neoplasm of prostate; I10 Essential (primary) hypertension; Z79.899 Other long term (current) drug therapy
CPT/HCPCS: 52001; 52224; 123; 80048; 86850; 86900; 86901; 93005; 00123; 74176; 85025; 93010; J0690; J1100; J1885; J2001; J2405; J2704; J3010

== ENCOUNTER 2023-12-02 17:44 | Emergency (ER) | payer MEDICARE, BC, SELFPAY ==
[2023-12-02 17:45] VITALS: BP 165/84; PULSE 96; RESP 14; TEMP 36.7; O2SAT 96
--- NOTE | 2023-12-02 18:05 | ED.GENADUL_ITS ---
Discharge Plan Disposition Patient Disposition: Home Condition: Stable Discharge Details Clinical Impression: Urinary retention Primary Care Provider: Joceline Starr ED Provider: Dorothy Adler Home Meds and New Rx's Prescriptions: Continued lisinopril 20 mg tablet 20 mg PO BID amlodipine 5 mg tablet 5 mg PO BID potassium chloride 20 mEq tablet extended release 30 meq PO DAILY pantoprazole 40 mg tablet,delayed release (DR/EC) 40 mg PO DAILY triamterene-hydrochlorothiazid 75-50 mg tablet 1 tab PO DAILY metronidazole 0.75 % cream 1 applic topical DAILY azelaic acid 15 % gel 1 applic topical BID terazosin 1 mg capsule 1 mg PO DAILY Patient Comments: TAKE 1 CAPSULE BY MOUTH ONCE DAILY AT BEDTIME,INCREASE GRADUALLY UNTIL BP<140/90 TO MAX 4 CAPSULES meclizine [Antivert] 50 mg tablet 50 mg PO DAILY Discharge Instructions Instructions: How to Care for Your Oh Catheter, Urinary Retention Additional Instructions: At this time no evidence for urinary tract infection. Please keep the Oh c atheter in until your follow-up with Dr. Loaiza with urology. I do recommend that you get in within the next 1 to 2 days if possible. Follow up with urology/primary care provider in 2-3 days. Return to ED sooner if any worsening abdominal pain, inability for the Oh to drain, vomiting fever or concerns. Referrals: Michele Loaiza MD [ [facility] STAFF PHYSICIAN] - 2 days Discharge Data Discharge Date/Time-TO BE ENTERED AT DEPARTURE: 12/02/23 19:22 HPI General Mode of arrival: ambulatory . Date/Time Provider Initiated Documentation: 12/02/23 17:53 . Limitations to Documentation: no limitations . Information obtained by: patient, RN notes reviewed and old records reviewed . HPI Narrative: 78-year-old male presents to the ER with a chief complaint of inability to urinate since 4:00. Patient reports that 2 hours ago he has began with inability to pee. Send his last time urinating was around noon. He did notice some blood at that time. He does have a history of hematuria recently had clot retrieval with Dr. Loaiza on . He reports that since then everything has been fine until today. He reports no significant pressure abdominal pain and he decided to come in sooner rather than wait. Does have a history of prostate cancer with prostatectomy, GERD, insomnia, ED, hypertension. Related Data Home Medications ?Medication ?Instructions ?Recorded ?Confirmed amlodipine 5 mg tablet 5 mg PO BID 08/04/23 12/02/23 azelaic acid 15 % topical gel 1 applic topical BID 08/04/23 12/02/23 lisinopril 20 mg tablet 20 mg PO BID 08/04/23 12/02/23 metronidazole 0.75 % topical cream 1 applic topical DAILY 08/04/23 12/02/23 pantoprazole 40 mg tablet,delayed 40 mg PO DAILY 08/04/23 12/02/23 release potassium chloride 20 mEq 30 meq PO DAILY 08/04/23 12/02/23 tablet,extended release triamterene 75 1 tab PO DAILY 08/04/23 12/02/23 mg-hydrochlorothiazide 50 mg tablet meclizine 50 mg tablet (Antivert) 50 mg PO DAILY 12/02/23 12/02/23 terazosin 1 mg capsule 1 mg PO DAILY 12/02/23 12/02/23 Allergies Allergy/AdvReac Type Severity Reaction Status Date / Time sulfamethoxazole (From Allergy Unknown unknown Verified 12/02/23 17:50 Bactrim) trimethoprim (From Bactrim) Allergy Unknown unknown Verified 12/02/23 17:50 General Stated Complaint: Urinary MIKEL: 3 Review of Systems All systems reviewed & are unremarkable except as noted in HPI and below Genitourinary Genitourinary: Reports as per HPI and Reports difficulty urinating Exam Narrative Exam Narrative: Constitutional: Alert and oriented x3. Appears stated age. Normal body habitus. Head: Normocephalic, no trauma. Eyes: Pupils PERRL, Red reflex noted, EOM's intact. Eyelids symmetrical without lesions, discharge, or swelling. ENT: Bilateral TM's WNL, External ear normal to inspection, no mastoid TTP, swelling, or erythema, Nasal turbinates WNL, no nasal discharge. Normal dentition, Posterior pharynx WNL, no exudate. Chest: RRR, Normal S1, S2, distal pulses intact. Resp: Lungs clear to auscultation bilaterally, no wheezes, rales, or rhonchi. Abdomen: Soft, non-distended, Normoactive bowel sounds all 4 quads. Musculoskeletal: Normal gait, Moves all 4 extremities without difficulty. Skin: No suspicious rashes or lesions. Capillary refill less than 2 sec. Neurologic: Cranial nerves II-XII intact. Alert and oriented x 3. Motor: No deficits noted. Sensory: Intact bilaterally all 4 extremities. Hematologic/Lymphatic: No ecchymosis, no lymphadenopathy. Course Vital Signs Vital signs: Vital Signs Temperature 36.7 C 12/02/23 17:45 Pulse 96 H 12/02/23 17:45 Respiratory Rate 14 12/02/23 17:45 Blood Pressure 165/84 H 12/02/23 17:45 Pulse Oximetry 96 12/02/23 17:45 Temperature 36.7 C 12/02/23 17:45 Pulse 96 H 12/02/23 17:45 Respiratory Rate 14 12/02/23 17:45 Respiratory Effort Normal 12/02/23 17:53 Blood Pressure 165/84 H 12/02/23 17:45 Pulse Oximetry 96 12/02/23 17:45 Oxygen Delivery Method Room Air 12/02/23 17:45 Oxygen Flow Rate 0 12/02/23 17:45 Pain Level 3 12/02/23 17:58 Medical Decision Making 78-year-old male presents to the ER with a chief complaint of inability to urinate since 4:00. Patient reports that 2 hours ago he has began with inability to pee. Send his last time urinating was around noon. He did notice some blood at that time. He does have a history of hematuria recently had clot retrieval with Dr. Loaiza on . He reports that since then everything has been fine until today. He reports no significant pressure abdominal pain and he decided to come in sooner rather than wait. Does have a history of prostate cancer with prostatectomy, GERD, insomnia, ED, hypertension. Oh catheter ordered, urinalysis. Oh placed by staffing administrator, approximately 400 cc of yellow urine return. Awaiting urinalysis. Most likely will send patient home with a leg bag with follow-up with urology. Urinalysis shows no evidence of urinary tract infection, small blood 10-20 RBCs no WBCs. Culture is not indicated at this time. This time I do suspect possible mechanical obstruction. Placed on care management list for follow-up with urology. Also and instructed patient to call in the morning he verbalized understanding. Patient sent home with a leg bag and Oh in place. This text was generated using Etaphaseation system, please disregard any oddities of phrase or misspellings. Medical Records Medical records reviewed: Yes I reviewed the patient's medical records. Lab Data Lab results reviewed: Yes I reviewed the patient's lab results. Labs: Laboratory Tests Range/Units 12/02/23 18:24 Urine Color (Yellow) Yellow Urine Clarity (Clear) Clear Urine pH (5-8) 7.0 Ur Specific [place] (1.005-1.025) 1.015 Urine Protein (Neg-Trace) mg/dL Negative Urine Ketones (Negative) mg/dL Negative Urine Blood (Negative) Small H Urine Nitrite (Negative) Negative Urine Bilirubin (Negative) Negative Urine Urobilinogen (Up to 0.2) mg/dL 0.2 Ur Leukocyte Esterase (Negative) Negative Urine RBC (0-2) HPF 10-20 H Urine WBC (0-5) HPF 0-2 Ur Epithelial Cells (Negative) HPF Rare Urine Crystals (Negative) HPF Negative Urine Bacteria (Negative) HPF Negative Urine Casts (Negative) LPF Negative Urine Mucus (Negative) Negative Ur Culture Indicated? No Urine Glucose (Negative) mg/dL Negative Quality:SDOH Health Related Social Needs: No Data to Display PFSH All Active Problems (Updated 12/02/23 @ 19:01 by Dorothy Adler NP) Urinary retention (Acute) Clot retention of urine (Acute) Oh catheter problem (Acute) Chronic hyponatremia (Acute) Hypokalemia (Acute) Oh catheter problem (Acute) Hematuria (Acute) Essential hypertension (Acute) Malignant tumor of prostate (Chronic) Medical History GERD (gastroesophageal reflux disease) Insomnia Erectile dysfunction Rosacea Social History Smoking/Tobacco Use Status: Never Smoking risk assessment performed?: Yes Alcohol Intake: current Alcohol Intake frequency: 3 or more drinks per day Alcohol type: beer Substance use type: does not use Housing: house Do you feel safe at home: Yes Do you feel safe in your relationship?: Yes
[2023-12-02] MEDS: Lidocaine 2% Jelly 6 ML SYR (18:31)
[2023-12-02 18:44] LABS: Bilirubin Negative (Negative); Blood Small (Negative); Clarity Clear (Clear); Glucose Negative (Negative); Ketones Negative (Negative); Leukocyte Esterase Negative (Negative); Nitrite Negative (Negative); Specific Gravity 1.015 (1.005-1.025); Urobilinogen 0.2 mg/dL (Up to 0.2)
[2023-12-02 18:47] VITALS: BP 133/69; PULSE 81; RESP 14; O2SAT 95
--- NOTE | 2023-12-02 18:47 | W.PCEDHO ---
Registration Status: Primary Language: Preferred Language: ED Information & Data Chief Complaint Urinary 12/02/23 18:07 Triage Note pt unable to urinate. got 12/02/23 17:45 out last after pérez procedure. was doing fine until about noon today. Pt was getting continuous irrigation. prior to procedure. No guillen today Medical / Surgical History (Last Reviewed 12/02/23 @ 18:07 by Dorothy Adler NP) Erectile dysfunction GERD (gastroesophageal reflux disease) Insomnia Rosacea Most Recent Vital Signs Temperature 36.7 C 12/02/23 17:45 Pulse 96 H 12/02/23 17:45 Respiratory Rate 14 12/02/23 17:45 Respiratory Effort Normal 12/02/23 17:53 Blood Pressure 165/84 H 12/02/23 17:45 Pulse Oximetry 96 12/02/23 17:45 Oxygen Delivery Method Room Air 12/02/23 17:45 Oxygen Flow Rate 0 12/02/23 17:45 Pain Level 3 12/02/23 17:58 Allergies sulfamethoxazole (From Bactrim) Allergy (Unknown, Verified 12/02/23 17:50) unknown trimethoprim (From Bactrim) Allergy (Unknown, Verified 12/02/23 17:50) unknown Diagnostics 12/02/23 Range/Units 18:24 Urine Color Yellow (Yellow) Urine Clarity Clear (Clear) Urine pH 7.0 (5-8) Ur Specific [place] 1.015 (1.005-1.025) Urine Protein Negative (Neg-Trace) mg/dL Urine Ketones Negative (Negative) mg/dL Urine Blood Small H (Negative) Urine Nitrite Negative (Negative) Urine Bilirubin Negative (Negative) Urine Urobilinogen 0.2 (Up to 0.2) mg/dL Ur Leukocyte Esterase Negative (Negative) Urine RBC Pending Urine WBC Pending Ur Epithelial Cells Pending Urine Crystals Pending Urine Bacteria Pending Urine Mucus Pending Ur Culture Indicated? Pending Urine Glucose Negative (Negative) mg/dL Intake and Output - 24 Hour Total 12/02/23 17:44 thru 12/02/23 18:30 Output Total 400 Balance -400 Weight 92.986 kg Output: Urine 400 Other: Urine Color Yellow Urine Appearance Clear Urinary Catheter Urinary Catheter Date of 12/02/23 Insertion [Urethral (Guillen)] Time of insertion [Urethral ( 18:30 Guillen)] Falls Risk Assessment History of Falls No History 12/02/23 17:59 Contributing Factors No Factors 12/02/23 17:59 Ambulatory Aids Independent 12/02/23 17:59 Tubes/Lines None 12/02/23 17:59 Gait Evaluation No gait disturbance 12/02/23 17:59 Cognition No cognitive impairment 12/02/23 17:59 Fall Total Score 0 12/02/23 17:59 Level of Risk Standard/Low Risk 12/02/23 17:59 v v v v v v v v v Sending and/or Receiving Nurses: Please use comment section below to note any information pertinent to the patient hand-off not included above. Information / Comments: Report received from: Marcia Polanco RN @ [id number] 12/02/23
[2023-12-02 19:04] LABS: WBC 0-2 HPF (0-5)
[2023-12-02 19:05] LABS: Bacteria Negative HPF (Negative); C & S Indicated? No; Casts Negative LPF (Negative); Crystals Negative HPF (Negative); Epithelial Cells Rare HPF (Negative); Mucus Negative (Negative)
== END 2023-12-02 19:22 | disposition home or self-care (01) ==
PROVIDERS: Emergency Provider Registered Nurse Emergency; PCP Family Medicine
DX: R33.8 Other retention of urine (principal)
CPT/HCPCS: 51702; 99283; 81003; 81015

== ENCOUNTER 2023-12-18 16:50 | Emergency (ER) | payer MEDICARE, BC, SELFPAY ==
[2023-12-18 16:51] VITALS: BP 171/66; PULSE 94; RESP 10; TEMP 36.6; O2SAT 96
== END 2023-12-18 17:39 | disposition home or self-care (01) ==
LOC: ER 16:54
PROVIDERS: PCP Family Medicine
DX: T83.9XXA Unspecified complication of genitourinary prosthetic device, implant and graft, initial encounter (principal)

== ENCOUNTER → 2024-01-05 08:40 | Outpatient (BNVA) | payer MEDICARE, BC, SELFPAY | PROVIDERS: PCP Family Medicine; Referring Provider Family Medicine; Visit Provider Urology | DX: C61 Malignant neoplasm of prostate (principal); R33.9 Retention of urine, unspecified; N32.0 Bladder-neck obstruction | CPT/HCPCS: 36415; 52000; 80048; 99283; 81003; 81015; 85025; 87086 ==

== ENCOUNTER 2024-01-05 11:42 | Emergency (ER) | payer MEDICARE, BC, SELFPAY ==
[2024-01-05 11:47] VITALS: BP 180/79; PULSE 106; RESP 14; TEMP 36.7; O2SAT 95
[2024-01-05 12:33] LABS: Abs Immature Grans 0.05 10^3/uL (0.0-0.06); Absolute Basophil Count 0.04 10^3/uL (0.0-0.2); Absolute Eosinophil Count 0.06 10^3/uL (0.0-0.7); Absolute Lymphocyte Count 1.14 10^3/uL (1.2-3.4); Absolute Monocyte Count 0.81 10^3/uL (0.1-0.8); Basophils % 0.6 %; Eosinophils % 0.8 %; HCT 40.9 % (40.0-50.0); HGB 14.3 g/dL (13.5-17.5); Immature Grans % 0.7 %; Lymphocytes % 16.1 %; MCH 30.5 pg (27.0-33.0); MCV 87 fL (80-95); MPV 9.3 fL (8.0-11.0); Monocytes % 11.4 %; Neutrophils % 70.4 %; Platelet Count 308 10^3/uL (130-400); RBC 4.69 10^6/uL (4.36-5.78); RDW 12.2 % (11.8-14.1); RDW-SD 38.7 fL
[2024-01-05 13:03] LABS: BUN 14 mg/dL (7-18); CREATININE 0.8 mg/dL (0.70-1.30); Calcium 9.6 mg/dL (8.5-10.1); Chloride 94 mmol/L (98-107); Estimated GFR 91.72 (mL/min/1.73m2); Glucose 125 mg/dL (74-106); Potassium 3.1 mmol/L (3.5-5.1); Sodium 132 mmol/L (136-145)
--- NOTE | 2024-01-05 13:32 | ED.GENADUL_ITS ---
Discharge Plan Disposition Patient Disposition: Home Discharge Details Clinical Impression: Acute urinary retention Primary Care Provider: Joceline Starr ED Provider: Jose Treadwell Home Meds and New Rx's Prescriptions: Continued lisinopril 20 mg tablet 20 mg PO BID amlodipine 5 mg tablet 5 mg PO BID potassium chloride 20 mEq tablet extended release 30 meq PO DAILY pantoprazole 40 mg tablet,delayed release (DR/EC) 40 mg PO DAILY triamterene-hydrochlorothiazid 75-50 mg tablet 1 tab PO DAILY metronidazole 0.75 % cream 1 applic topical DAILY azelaic acid 15 % gel 1 applic topical BID meclizine [Antivert] 50 mg tablet 50 mg PO DAILY Discharge Instructions Instructions: Urinary Retention Additional Instructions: You are seen in the emergency department for your urinary retention. A catheter was placed. Blood counts are within normal limits. Please continue taking your home medications as directed. Please call the urology team for follow-up. Please return to the manage department if you develop fevers nausea vomiting chest pain shortness of breath. Discharge Data Discharge Date/Time-TO BE ENTERED AT DEPARTURE: 01/05/24 13:59 HPI General Date/Time Provider Initiated Documentation: 01/05/24 11:58 . HPI Narrative: MDM This is a mildly tachycardic and initially hypertensive 78-year-old male with inability to void and recent Oh catheter removal for which Oh catheter will be replaced in the ED. No pain out of proportion to suggest necrotizing soft tissue infection. Will obtain labs given acute urinary retention. No dysuria or frequency so my suspicion is low for UTI. Will send urinalysis. 1:30 PM Patient metabolic panel showing no BRIGIDA. Mild hyperglycemia mild anion gap and normal bicarbonate at no acute electrolyte abnormalities beyond mild hypokalemia. CBC lacks anemia thrombocytopenia and leukocytosis. Repeat heart rate normalized to 94 bpm. Patient felt markedly improved. Patient I discussed return indications including any worsening pain nausea vomiting chest pain shortness of breath. He understood his return indications and was discharged with empiric trial of expectant outpatient management with urology follow-up. HPI This is a 78-year-old male with a history of malignant tumor of the prostate and recent Oh catheter removal earlier this morning arrived to the emergency department via private vehicle in setting of inability to urinate. Patient had his catheter removed with urology clinic today. He said that it was placed approximately 1 month ago in setting of bleeding. He has never had a urinary tract infection. Exam General: Well-appearing in no acute distress speaking in complete sentences. Head: Normocephalic, atraumatic. Eye: Extraocular eye movements intact. No conjunctival injection. No scleral icterus. Ear, nose, mouth, throat: Grossly normal inspection. Normal voice, handling secretions normally. Neck: Trachea midline. Cardiovascular: Well-perfused distal extremities. Respiratory: Nonlabored respiration. Gastrointestinal: Nondistended abdomen. Soft nontender. : Circumcised penis. No pain on proportion. Catheter in place with leg bag draining vicky colored urine. No clots. Musculoskeletal: No edema. Moving all 4 extremities spontaneously. Skin: Normal for age and race, grossly normal temperature and turgor. No acute rash. Neurologic: Alert and appropriate, no apparent acute deficits. Psychiatric: Mood and manner are appropriate. Grooming and personal hygiene are appropriate. Related Data Home Medications ?Medication ?Instructions ?Recorded ?Confirmed amlodipine 5 mg tablet 5 mg PO BID 08/04/23 01/05/24 azelaic acid 15 % topical gel 1 applic topical BID 08/04/23 01/05/24 lisinopril 20 mg tablet 20 mg PO BID 08/04/23 01/05/24 metronidazole 0.75 % topical cream 1 applic topical DAILY 08/04/23 01/05/24 pantoprazole 40 mg tablet,delayed 40 mg PO DAILY 08/04/23 01/05/24 release potassium chloride 20 mEq 30 meq PO DAILY 08/04/23 01/05/24 tablet,extended release triamterene 75 1 tab PO DAILY 08/04/23 01/05/24 mg-hydrochlorothiazide 50 mg tablet meclizine 50 mg tablet (Antivert) 50 mg PO DAILY 12/02/23 01/05/24 Allergies Allergy/AdvReac Type Severity Reaction Status Date / Time sulfamethoxazole (From Allergy Unknown unknown Verified 01/05/24 11:49 Bactrim) trimethoprim (From Bactrim) Allergy Unknown unknown Verified 01/05/24 11:49 General Stated Complaint: Urinary MIKEL: 3 Course Vital Signs Vital signs: Vital Signs Temperature 36.7 C 01/05/24 11:47 Pulse 106 H 01/05/24 11:47 Respiratory Rate 14 01/05/24 11:47 Blood Pressure 180/79 H 01/05/24 11:47 Pulse Oximetry 95 01/05/24 11:47 Temperature 36.7 C 01/05/24 11:47 Temperature Source Oral 01/05/24 11:47 Pulse 106 H 01/05/24 11:47 Respiratory Rate 14 01/05/24 11:47 Respiratory Effort Normal 01/05/24 12:30 Blood Pressure 180/79 H 01/05/24 11:47 Blood Pressure Position Sitting 01/05/24 11:47 Pulse Oximetry 95 01/05/24 11:47 Oxygen Delivery Method Room Air 01/05/24 11:47 Oxygen Flow Rate 0 01/05/24 11:47 Pain Level 8 01/05/24 11:47 Lab/Test Results Lab/Test Results: Laboratory Tests Range/Units 01/05/24 12:30 WBC (4.4-10.8) 10^3/uL 7.10 RBC (4.36-5.78) 10^6/uL 4.69 Hgb (13.5-17.5) g/dL 14.3 Hct (40.0-50.0) % 40.9 MCV (80-95) fL 87 MCH (27.0-33.0) pg 30.5 MCHC (32.0-36.0) % 35.0 RDW (11.8-14.1) % 12.2 Plt Count (130-400) 10^3/uL 308 MPV (8.0-11.0) fL 9.3 Immature Gran % % 0.7 Neutrophils % % 70.4 Lymphocytes % % 16.1 Monocytes % % 11.4 Eosinophils % % 0.8 Basophils % % 0.6 Nucleated RBC % (0.0-0.3) % 0.0 Absolute Neutrophils (1.2-6.7) 10^3/uL 5.00 Absolute Lymphocytes (1.2-3.4) 10^3/uL 1.14 L Absolute Monocytes (0.1-0.8) 10^3/uL 0.81 H Absolute Eosinophils (0.0-0.7) 10^3/uL 0.06 Absolute Basophils (0.0-0.2) 10^3/uL 0.04 Sodium (136-145) mmol/L 132 L Potassium (3.5-5.1) mmol/L 3.1 L Chloride (98-107) mmol/L 94 L Carbon Dioxide (21.0-32.0) mmol/L 25.0 Anion Gap (3-11) mmol/L 13.0 H BUN (7-18) mg/dL 14 Creatinine (0.70-1.30) mg/dL 0.8 Est GFR (CKD-EPI 2020) (mL/min/1.73m2) 91.72 Glucose (74-106) mg/dL 125 H Calcium (8.5-10.1) mg/dL 9.6 Medical Decision Making Quality:SDOH Health Related Social Needs: No Data to Display PFSH All Active Problems (Updated 01/05/24 @ 13:34 by Jose Treadwell MD) Acute urinary retention (Acute) Clot retention of urine (Acute) Essential hypertension (Acute) Malignant tumor of prostate (Chronic) Medical History GERD (gastroesophageal reflux disease) Insomnia Erectile dysfunction Rosacea Social History Smoking/Tobacco Use Status: Never Smoking risk assessment performed?: Yes Alcohol Intake: current Alcohol Intake frequency: 3 or more drinks per day A lcohol type: beer Drug use: Never Substance use type: does not use Housing: house Do you feel safe at home: Yes Do you feel safe in your relationship?: Yes
[2024-01-05 13:34] VITALS: BP 136/82; PULSE 94; RESP 16; O2SAT 97
[2024-01-05 15:29] LABS: Bilirubin Negative (Negative); Blood Large (Negative); Clarity Cloudy (Clear); Glucose Negative (Negative); Ketones Negative (Negative); Leukocyte Esterase Trace (Negative); Nitrite Negative (Negative); Urobilinogen 0.2 mg/dL (Up to 0.2)
[2024-01-05 15:39] LABS: Epithelial Cells Rare HPF (Negative); RBC >50 HPF (0-2)
[2024-01-05 15:40] LABS: Bacteria Rare HPF (Negative); C & S Indicated? Yes; Casts Negative LPF (Negative); Crystals Negative HPF (Negative); Mucus Negative (Negative); Other Cells Negative (Negative)
== END 2024-01-05 13:59 | disposition home or self-care (01) ==
PROVIDERS: Emergency Provider Emergency Medicine; PCP Family Medicine
DX: R33.9 Retention of urine, unspecified (principal); I10 Essential (primary) hypertension
CPT/HCPCS: 36415; 80048; 99283; 81003; 81015; 85025; 87086

== ENCOUNTER 2024-01-08 14:55 | Emergency (ER) | payer MEDICARE, BC, SELFPAY ==
[2024-01-08 14:57] VITALS: BP 175/87; PULSE 103; RESP 18; TEMP 36.7; O2SAT 94
--- NOTE | 2024-01-08 15:18 | ED.GENADUL_ITS ---
Discharge Plan Disposition Patient Disposition: Home Condition: Improving Discharge Details Chief Complaint: Urinary Clinical Impression: Acute urinary retention, Abnormal abdominal CT scan, Abnormal CT scan, pelvis Primary Care Provider: Joceline Starr ED Provider: Dayday Mcmanus Home Meds and New Rx's Prescriptions: No Action lisinopril 20 mg tablet 20 mg PO BID amlodipine 5 mg tablet 5 mg PO BID potassium chloride 20 mEq tablet extended release 30 meq PO DAILY pantoprazole 40 mg tablet,delayed release (DR/EC) 40 mg PO DAILY triamterene-hydrochlorothiazid 75-50 mg tablet 1 tab PO DAILY metronidazole 0.75 % cream 1 applic topical DAILY azelaic acid 15 % gel 1 applic topical BID meclizine [Antivert] 50 mg tablet 50 mg PO DAILY Discharge Instructions Instructions: Urinary Retention (DC) Additional Instructions: Please follow-up with urology as scheduled. Please follow-up with your primary care physician and discuss the incidental findings on your CT abdomen and pelvis. Return to the emergency department for any worsening symptoms HPI General Date/Time Provider Initiated Documentation: 01/08/24 15:04 . HPI Narrative: 78-year-old male history of prostate cancer status post radiation, presents with urinary retention and some hematuria and Oh bag, has had difficult Oh catheter placements in the past most recently earlier in the week, has a schedule appointment to see Dr. Loaiza next week. Related Data Home Medications ?Medication ?Instructions ?Recorded ?Confirmed amlodipine 5 mg tablet 5 mg PO BID 08/04/23 01/08/24 azelaic acid 15 % topical gel 1 applic topical BID 08/04/23 01/08/24 lisinopril 20 mg tablet 20 mg PO BID 08/04/23 01/08/24 metronidazole 0.75 % topical cream 1 applic topical DAILY 08/04/23 01/08/24 pantoprazole 40 mg tablet,delayed 40 mg PO DAILY 08/04/23 01/08/24 release potassium chloride 20 mEq 30 meq PO DAILY 08/04/23 01/08/24 tablet,extended release triamterene 75 1 tab PO DAILY 08/04/23 01/08/24 mg-hydrochlorothiazide 50 mg tablet meclizine 50 mg tablet (Antivert) 50 mg PO DAILY 12/02/23 01/08/24 Allergies Allergy/AdvReac Type Severity Reaction Status Date / Time sulfamethoxazole (From Allergy Unknown unknown Verified 01/08/24 15:01 Bactrim) trimethoprim (From Bactrim) Allergy Unknown unknown Verified 01/08/24 15:01 General Stated Complaint: Urinary MIKEL: 4 Exam Narrative Exam Narrative: Alert interactive Moist mucous membranes tongue secretions Speaking full sentences no respiratory distress Abdomen soft nontender nondistended Scant blood in Oh catheter and catheter bag with some urine and scant admixed blood leaking around urethral meatus Course Vital Signs Vital signs: Vital Signs Temperature 36.7 C 01/08/24 14:57 Pulse 103 H 01/08/24 14:57 Respiratory Rate 18 01/08/24 14:57 Blood Pressure 175/87 H 01/08/24 14:57 Pulse Oximetry 94 01/08/24 14:57 Temperature 36.7 C 01/08/24 14:57 Temperature Source Temporal Artery Scan 01/08/24 14:57 Pulse 103 H 01/08/24 14:57 Respiratory Rate 18 01/08/24 14:57 Blood Pressure 175/87 H 01/08/24 14:57 Pulse Oximetry 94 01/08/24 14:57 Oxygen Delivery Method Room Air 01/08/24 14:57 Oxygen Flow Rate 0 01/08/24 14:57 Pain Level 6 01/08/24 14:57 Medical Decision Making 74-year-old male history of prostate cancer, postradiation, 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 Will obtain CT abdomen pelvis to confirm Oh in correct position without evidence of false passage, would like to keep patient's Oh in place as he is a difficult placement and has required in-house urology consultation to emergency department for successful placement in the past, if Oh catheter is in correct position will irrigate to attempt to dislodge any obstructing clots, if unable to irrigate or if Oh is in incorrect position will remove catheter. Hypertension tachycardia likely related to discomfort. 17: 34 Oh catheter flushed and some clot was able to be expressed, patient now putting out clear urine into Oh bag feeling much better. Resting comfortably no acute distress. 18: 21 patient was comfortably no acute distress. Urine is clear and flowing without issue. Patient is close follow-up next week with urology. No infectious symptomatology. Incidental CT findings relayed to patient. He will follow-up with his primary care physician Quality:SDOH Health Related Social Needs: No Data to Display PFSH All Active Problems (Updated 01/08/24 @ 18:23 by Dayday Mcmanus MD) Abnormal CT scan, pelvis (Acute) Abnormal abdominal CT scan (Acute) Acute urinary retention (Acute) Acute urinary retention (Acute) Clot retention of urine (Acute) Essential hypertension (Acute) Malignant tumor of prostate (Chronic) Medical History GERD (gastroesophageal reflux disease) Insomnia Erectile dysfunction Rosacea Social History Smoking/Tobacco Use Status: Never Smoking risk assessment performed?: Yes Alcohol Intake: current Alcohol Intake frequency: 3 or more drinks per day Alcohol type: beer Drug use: Never Substance use type: does not use Housing: house Do you feel safe at home: Yes Do you feel safe in your relationship?: Yes
[2024-01-08 15:35] LABS: Abs Immature Grans 0.05 10^3/uL (0.0-0.06); Absolute Basophil Count 0.05 10^3/uL (0.0-0.2); Absolute Eosinophil Count 0.18 10^3/uL (0.0-0.7); Absolute Lymphocyte Count 1.31 10^3/uL (1.2-3.4); Absolute Monocyte Count 0.78 10^3/uL (0.1-0.8); Absolute Neutrophil Count 5.02 10^3/uL (1.2-6.7); Basophils % 0.7 %; Eosinophils % 2.4 %; HCT 39.6 % (40.0-50.0); HGB 13.8 g/dL (13.5-17.5); Immature Grans % 0.7 %; Lymphocytes % 17.7 %; MCH 30.6 pg (27.0-33.0); MCHC 34.8 % (32.0-36.0); MCV 88 fL (80-95); MPV 9.2 fL (8.0-11.0); Monocytes % 10.6 %; Neutrophils % 67.9 %; Platelet Count 329 10^3/uL (130-400); RBC 4.51 10^6/uL (4.36-5.78); RDW-SD 38.8 fL; WBC 7.39 10^3/uL (4.4-10.8)
[2024-01-08 15:48] LABS: Prothrombin Time 10.5 sec (9.1-11.1)
[2024-01-08 15:50] LABS: ALT 27 U/L (16-63); AST 20 U/L (15-37); Albumin 4.1 g/dL (3.4-5.0); Alkaline Phosphatase 71 U/L (46-116); Anion Gap 12.2 mmol/L (3-11); BUN 13 mg/dL (7-18); Bilirubin, Total 0.42 mg/dL (0.2-1.0); CO2 27.8 mmol/L (21.0-32.0); CREATININE 0.7 mg/dL (0.70-1.30); Calcium 9.6 mg/dL (8.5-10.1); Chloride 95 mmol/L (98-107); Estimated GFR 95.49 (mL/min/1.73m2); Glucose 106 mg/dL (74-106); Potassium 3.2 mmol/L (3.5-5.1); Sodium 135 mmol/L (136-145)
[2024-01-08] MEDS: ACETAMINOPHEN 1,000 MG/100 ML BTL 400 MG IVPB (16:05)
[2024-01-08 16:07] VITALS: O2SAT 98
[2024-01-08] MEDS: Omnipaque 350 MG/ML 100 ML BTL IJ (16:51)
[2024-01-08] MEDS: Normal Saline - Diluent 50 ML VIAL IJ (16:52)
--- NOTE | 2024-01-08 16:52 | DI.CT_ITS ---
Exam(s) CT ABDOMEN PELVIS W EXAM: CT ABDOMEN PELVIS W CLINICAL HISTORY: urine retention, hx prostate ca radiation, guillen. TECHNIQUE: Imaging Protocol: Axial computed tomography images with coronal and sagittal reformatted images were created and reviewed CONTRAST MATERIAL: Intravenous: Omnipaque-350 100cc Oral: None COMPARISON: CT CT ABDOMEN PELVIS WO from 11/26/2023 FINDINGS: VISUALIZED LUNG BASES: No nodules nor pleural effusions evident. ABDOMEN: There is no ascites. LIVER: Again noted is a 2.4 by 1.8 cm cyst in the medial aspect of the right hepatic lobe and there i s an adjacent smaller 0.6 cm benign cyst also evident in the right hepatic lobe. There are no ominou s hepatic lesions evident. No dilated intrahepatic ducts. GALLBLADDER/BILIARY: No obvious gallbladder pathology. CBD is not dilated. PANCREAS: No evidence of pancreatic mass nor dilatation of the pancreatic duct. SPLEEN: Spleen is not enlarged. No obvious intrasplenic lesions. Splenic and portal veins are paten t. ADRENALS: Right adrenal gland unremarkable. There is a 1 cm nodule at the genu of the left adrenal g land which appears unchanged from 11/26/2023. Probably an incidental adenoma. KIDNEYS:There are 2 cysts in the left kidney. One is parapelvic measuring 3.3 x 2.6 cm. The other i s in the lateral cortex and measures 2.8 by 2.7 cm. Both exhibit Hounsfield units consistent with be nign cysts and therefore do not require further workup. There are no solid lesions in either kidney and no radiopaque calculi evident within the kidneys. There is mild dilatation of both collecting sy stems without evidence of radiopaque calculi in the lower ureters. Catheter is again noted in the ur inary bladder. Prostate is surgically absent.. Urinary bladder is mildly distended with AP length 1 3 cm by 7 cm craniocaudal by 8.9 cm wide. There are no radiopaque calculi seen at the ureterovesical junctions nor within the urinary bladder. Slight thickening of the posterior wall noted. ABDOMINAL AORTA: The abdominal aorta is calcified but not enlarged. Common iliac arteries are also c alcified and upper normal diameters. LYMPH NODES:There is no retroperitoneal nor paraaortic adenopathy. There is no adenopathy around the aortic bifurcation nor along the iliac chains. There is no inguinal adenopathy. ABDOMINAL WALL: No evidence of significant anterior abdominal wall nor inguinal hernia. GI: There is no evidence of bowel obstruction, free air, nor abscess. There is a E non digested pill at the distal most I ileal loop just proximal to the ileocecal valve, this undigested pill measuring 1.6 by 0.6 cm.. This was not evident on the images of 11/26/2023. Ne vertheless, there is no bowel obstruction above this level. PELVIS: GI: No evidence of appendicitis.The sigmoid colon is redundant and extends up out of the pelvis to th e level of the distal half of the transverse colon. There is no evidence of significant diverticular disease in the sigmoid. LYMPH NODES: There is a well-defined 2.9 by 1.7 by 3 cm cystic appearing density in the right-side of the pelvis again noted with fluid measurement Hounsfield units and unchanged from 11/26/2023. Suspe ct that this may be a lymphocele. This is immediately adjacent to the right obturator internus muscl e. REPRODUCTIVE: Prostate gland is absent. Seminal vesicles are diminutive. URINARY BLADDER: As above. Catheter in place OSSEOUS: Multilevel advanced degenerative disc disease narrowing in the lumbar spine. Also mild ante rolisthesis L5 upon S1 related to bilateral pars defects at L5. In again noted is severe advanced degenerative changes in the right hip involving the femoral head an d neck and acetabulum and appearing chronic including femoral head flattening. The actual joint spac e appears increased and this is related to a right hip joint effusion and synovial thickening which e xtends posteriorly through the joint capsule to the level of the gluteus curtis muscle, similar to p revious. The opposite-left hip appears unremarkable. IMPRESSION: 1. Prostate is surgically absent and there is a catheter again noted in the urinary bladder (which is moderately distended). There is mild bilateral hydronephrosis-hydroureter with the ureter is dilate d to 9 mm diameter on the right side and slightly smaller on the left, this without evidence of radio paque calculi in the ureters nor within the urinary bladder. Suspect that this may be related to eit her a sessile lesion in the bladder affecting the UVJ areas or possibly post radiation change. 2. Both findings described in the left kidney on the prior noninfused CT scan of 11/26/2023 have the appearance of benign cysts on the present contrast infused study. These do not require further imagi ng evaluation. There are no solid malignant appearing lesions in the bilateral renal cortices. 3. Unchanged benign-appearing cyst in the right hepatic lobe of the liver. 4. Unchanged 1 cm benign-appearing nodule in the left adrenal gland which is probably an incidental a denoma. 5. There is well-defined right pelvic sidewall cystic lesion measuring 2.9 x 1.7 x 3 cm adjacent to the right obturator internus muscle. This is unchanged from the CT scan 11/26/2023 and is either a l ymphocele or possibly a cyst related to the right hip joint effusion and severe degenerative change i n the right hip acetabulum with projection through the cortex. Other possibility (but less likely gi amy that it is cystic) is obturator adenopathy in this patient with a history of prostate malignancy. 6. Severe advanced degenerative change and deformity of the right hip possibly related to prior johan te avascular necrosis and/or element of developmental dysplasia. There is severe degenerative change with multiple degenerative subarticular cysts and subchondral sclerosis in both the right femoral he ad and right acetabulum. There is synovial thickening and joint effusion on the right side, includin g outpouching of joint effusion posteriorly measuring 2.9 x 3.0 and extending through the posterior c apsule of the right hip and abutting the right gluteus curtis muscle, similar to previous study. Called by myself to ER physician 01/08/2024 5:50 p.m. RADIATION DOSE DELIVERED: 1,313.7mGy.cm Total DLP DATA REPOSITORY: All CT scans at this facility are submitted to the National Radiology Data Registry (NRDR) Dose Index Registry (DIR) with the [employer] ([employer]). RADIATION OPTIMIZATION: All CT scans at this facility use at least one of these dose optimization te chniques: automated exposure control; mA and/or kV adjustment per patient size (includes targeted exa ms where dose is matched to clinical indication); or iterative reconstruction.
[2024-01-08 18:34] VITALS: BP 173/82; PULSE 83; RESP 14; O2SAT 97
== END 2024-01-08 18:36 | disposition home or self-care (01) ==
PROVIDERS: Emergency Provider Emergency Medicine; PCP Family Medicine
DX: T83.098A Other mechanical complication of other urinary catheter, initial encounter (principal); R33.9 Retention of urine, unspecified; R93.5 Abnormal findings on diagnostic imaging of other abdominal regions, including retroperitoneum; R93.41 Abnormal radiologic findings on diagnostic imaging of renal pelvis, ureter, or bladder; Z90.79 Acquired absence of other genital organ(s)
CPT/HCPCS: 36415; 80053; 86850; 86900; 86901; 96374; 99285; 74177; 85025; 85610; 85730; 99284; J0131; J3490

== ENCOUNTER 2024-01-12 11:58 | Emergency (ER) | payer MEDICARE, BC, SELFPAY ==
[2024-01-12 12:02] VITALS: BP 134/78; PULSE 92; RESP 18; TEMP 36.4; O2SAT 95
[2024-01-12 12:06] VITALS: BP 134/78; PULSE 92; RESP 18; TEMP 36.4; O2SAT 95
--- NOTE | 2024-01-12 12:51 | W.ED.GENAD ---
Discharge Plan Disposition Patient Disposition: Home Condition: Stable Discharge Details Clinical Impression: Hematuria, Acute UTI Primary Care Provider: Joceline Starr ED Provider: Braulio Mauricio Home Meds and New Rx's Prescriptions: New levofloxacin 750 mg tablet 750 mg PO DAILY Qty: 5 0RF Continued lisinopril 20 mg tablet 20 mg PO BID amlodipine 5 mg tablet 5 mg PO BID potassium chloride 20 mEq tablet extended release 30 meq PO DAILY pantoprazole 40 mg tablet,delayed release (DR/EC) 40 mg PO DAILY triamterene-hydrochlorothiazid 75-50 mg tablet 1 tab PO DAILY metronidazole 0.75 % cream 1 applic topical DAILY azelaic acid 15 % gel 1 applic topical BID meclizine [Antivert] 50 mg tablet 50 mg PO DAILY Discharge Instructions Additional Instructions: You are being treated for urinary tract infection Follow-up with Dr. Loaiza as scheduled If you feel more ill or have new symptoms such as high fevers or severe abdominal pain return to the emergency department for reevaluation HPI General Mode of arrival: ambulatory. Date/Time Provider Initiated Documentation: 01/12/24 12:15. Limitations to Documentation: no limitations. Information obtained by: patient. History of Present Illness 78 year old M presents to the emergency department with the chief complaint of blood in guillen, described as moderate, Patient started experiencing this hour(s) (3) and it has been constant. No relieving factors improve symptom(s), No exacerbating factors reported . Patient notes no other symptoms.. Patient did receive the following treatments prior to arrival, none Related Data Home Medications ?Medication ?Instructions ?Recorded ?Confirmed amlodipine 5 mg tablet 5 mg PO BID 08/04/23 01/12/24 azelaic acid 15 % topical gel 1 applic topical BID 08/04/23 01/12/24 lisinopril 20 mg tablet 20 mg PO BID 08/04/23 01/12/24 metronidazole 0.75 % topical cream 1 applic topical DAILY 08/04/23 01/12/24 pantoprazole 40 mg tablet,delayed 40 mg PO DAILY 08/04/23 01/12/24 release potassium chloride 20 mEq 30 meq PO DAILY 08/04/23 01/12/24 tablet,extended release triamterene 75 1 tab PO DAILY 08/04/23 01/12/24 mg-hydrochlorothiazide 50 mg tablet meclizine 50 mg tablet (Antivert) 50 mg PO DAILY 12/02/23 01/12/24 levofloxacin 750 mg tablet 750 mg PO DAILY #5 tabs 01/12/24 Previous Rx's ?Medication ?Instructions ?Recorded levofloxacin 750 mg tablet 750 mg PO DAILY #5 tabs 01/12/24 Allergies Allergy/AdvReac Type Severity Reaction Status Date / Time sulfamethoxazole (From Allergy Unknown unknown Verified 01/12/24 12:05 Bactrim) trimethoprim (From Bactrim) Allergy Unknown unknown Verified 01/12/24 12:05 General Stated Complaint: Urinary MIKEL: 3 Review of Systems All systems reviewed & are unremarkable except as noted in HPI and below Constitutional Constitutional: Denies chills, Denies fever(s) and Denies weakness Cardiovascular Cardiovascular: Denies chest pain and Denies dyspnea Respiratory Respiratory: Denies cough and Denies dyspnea Gastrointestinal Gastrointestinal: Denies abdominal pain, Denies nausea and Denies vomiting Neurologic Neurologic: Denies weakness Exam Const General: no acute distress Orientation: alert HENCA Head: normal to inspection Ears: external ears normal General nose exam: external nose normal Mouth: moist mucous membranes Eyes General: appearance normal, both eyes and all related structures Neck Neck: normal visual inspection Resp Effort & Inspection: normal respiratory effort and able to speak in complete sentences Cardio Rate: regular rate GI Palpation: soft and nontender Skin General skin exam: no rashes or lesions noted Neuro General: patient alert and patient oriented x3 Extrem General: normal to inspection Psych Mental Status: mental status grossly normal Course Vital Signs Vital signs: Vital Signs Temperature 36.4 C 01/12/24 12:02 Pulse 92 H 01/12/24 12:02 Respiratory Rate 18 01/12/24 12:02 Blood Pressure 134/78 01/12/24 12:02 Pulse Oximetry 95 01/12/24 12:02 Temperature 36.4 C 01/12/24 12:06 Temperature Source Oral 01/12/24 12:06 Pulse 92 H 01/12/24 12:06 Respiratory Rate 18 01/12/24 12:06 Blood Pressure 134/78 01/12/24 12:06 Blood Pressure Position Sitting 01/12/24 12:06 Pulse Oximetry 95 01/12/24 12:06 Oxygen Delivery Method Room Air 01/12/24 12:06 Oxygen Flow Rate 0 01/12/24 12:06 Medical Decision Making 78-year-old male who had a Guillen placed approximately 2 days ago for urinary retention comes in with intermittent hematuria in the Guillen bag but this morning's had darker urine so came here for evaluation. He says he denies clots in the urine as well. He denies any fevers, abdominal pain, chills. He appears on exam speaking full sentences. His abdomen is soft nontender. He does have dark bloody urine in his Guillen bag. Suspect that he had blood clot in his urine, he states that it took several attempts to get the Guillen and when he had done. Will check UA and have nursing flush the Guillen and reassess. Patient no has fairly tinged red urine flowing out of his Guillen. He is positive for nitrates on UA so we will treat with levofloxacin. He has no fevers or systemic symptoms so doubt Manish or sepsis. He is stable for discharge he will follow-up with Dr. Loaiza, return precautions given. Differential Diagnosis Differential Diagnosis: hematuria, blood clot Lab Data Lab results reviewed: Yes I reviewed the patient's lab results. Quality:[facility] Health Related Social Needs: No Data to Display [facility] All Active Problems (Updated 01/12/24 @ 13:43 by Braulio Mauricio MD) Acute UTI (Acute) Hematuria (Acute) Abnormal CT scan, pelvis (Acute) Abnormal abdominal CT scan (Acute) Acute urinary retention (Acute) Acute urinary retention (Acute) Clot retention of urine (Acute) Essential hypertension (Acute) Malignant tumor of prostate (Chronic) Medical History GERD (gastroesophageal reflux disease) Insomnia Erectile dysfunction Rosacea Social History Smoking/Tobacco Use Status: Never Smoking risk assessment performed?: Yes Alcohol Intake: current Alcohol Intake frequency: 3 or more drinks per day Alcohol type: beer Drug use: Never Substance use type: does not use Housing: house Do you feel safe at home: Yes Do you feel safe in your relationship?: Yes
[2024-01-12 13:19] LABS: Bilirubin Moderate (Negative); Blood Large (Negative); Clarity Cloudy (Clear); Glucose 100 mg/dL (Negative); Ketones 15 mg/dL (Negative); Leukocyte Esterase Trace (Negative); Nitrite Positive (Negative); Specific Gravity 1.015 (1.005-1.025)
[2024-01-12 13:30] LABS: C & S Indicated? No
[2024-01-12] MEDS: levoFLOXacin 500 MG, levoFLOXacin 250 MG 750 MG PO (13:56)
[2024-01-12 14:03] VITALS: BP 136/80; PULSE 90; RESP 20; TEMP 36.8; O2SAT 98
--- NOTE | 2024-01-12 14:38 | NUR.NOTE ---
Filemon Mcmahon called stating that the patient was there to pickling grader his prescription but they did not receive it. The prescription was for an antibiotic and I gave it to them verbally. Dr. Mauricio aware. Nursing Note:
--- NOTE | 2024-01-14 12:12 | NUR.NOTE ---
Accessed Pt chart to obtain the name of the antibiotics given. However Pt was given antibiotics at a different visit.
== END 2024-01-12 14:13 | disposition home or self-care (01) ==
PROVIDERS: Emergency Provider Emergency Medicine; PCP Family Medicine
DX: R31.9 Hematuria, unspecified (principal); N39.0 Urinary tract infection, site not specified; Z97.8 Presence of other specified devices
CPT/HCPCS: 99283; 81003; 81015; 87086

== ENCOUNTER 2024-01-13 15:24 | Emergency (ER) | payer MEDICARE, BC, SELFPAY ==
[2024-01-13 15:38] VITALS: BP 139/70; PULSE 98; RESP 18; TEMP 36.6; O2SAT 96
--- NOTE | 2024-01-13 16:18 | W.ED.GENAD ---
Discharge Plan Disposition Patient Disposition: Home Condition: Stable Discharge Details Clinical Impression: Oh catheter status Primary Care Provider: Joceline Starr ED Provider: Dorothy Adler Home Meds and New Rx's Prescriptions: Continued lisinopril 20 mg tablet 20 mg PO BID amlodipine 5 mg tablet 5 mg PO BID potassium chloride 20 mEq tablet extended release 30 meq PO DAILY pantoprazole 40 mg tablet,delayed release (DR/EC) 40 mg PO DAILY triamterene-hydrochlorothiazid 75-50 mg tablet 1 tab PO DAILY metronidazole 0.75 % cream 1 applic topical DAILY azelaic acid 15 % gel 1 applic topical BID meclizine [Antivert] 50 mg tablet 50 mg PO DAILY levofloxacin 750 mg tablet 750 mg PO DAILY Qty: 5 0RF Discharge Instructions Instructions: How to Care for Your Oh Catheter Additional Instructions: Please continue to flush the catheter if it becomes clogged again. If unable to flush it or if you feel as if your bladder is not draining please return to the emergency department if needed. Follow up with primary care provider/urology in 3-5 days. Return to ED sooner if any worsening or concerns. Thank you for allowing us to care for you today. Referrals: Joceline Starr [Primary Care Provider] - Michele Loaiza MD [ [facility] STAFF PHYSICIAN] - 1 week Discharge Data Discharge Date/Time-TO BE ENTERED AT DEPARTURE: 01/13/24 16:28 HPI General Mode of arrival: ambulatory. Date/Time Provider Initiated Documentation: 01/13/24 15:52. Limitations to Documentation: no limitations. Information obtained by: patient, RN notes reviewed and old records reviewed. HPI Narrative: 78-year-old male presents to the ER for clogged catheter. Patient does not currently have a urinary tract infection is taking antibiotics. He does see Dr. Loaiza with urology. He reports that he has had decreased p.o. intake today. He was able to flush it prior to arrival and it is now draining red urine output. He reports earlier that he did have some clots however no clots noted now. He does not feel like his bladder is distended or full. We will give him some more supplies for further flushing and discharge home. Related Data Home Medications ?Medication ?Instructions ?Recorded ?Confirmed amlodipine 5 mg tablet 5 mg PO BID 08/04/23 01/13/24 azelaic acid 15 % topical gel 1 applic topical BID 08/04/23 01/13/24 lisinopril 20 mg tablet 20 mg PO BID 08/04/23 01/13/24 metronidazole 0.75 % topical cream 1 applic topical DAILY 08/04/23 01/13/24 pantoprazole 40 mg tablet,delayed 40 mg PO DAILY 08/04/23 01/13/24 release potassium chloride 20 mEq 30 meq PO DAILY 08/04/23 01/13/24 tablet,extended release triamterene 75 1 tab PO DAILY 08/04/23 01/13/24 mg-hydrochlorothiazide 50 mg tablet meclizine 50 mg tablet (Antivert) 50 mg PO DAILY 12/02/23 01/13/24 levofloxacin 750 mg tablet 750 mg PO DAILY #5 tabs 01/12/24 01/13/24 Previous Rx's ?Medication ?Instructions ?Recorded levofloxacin 750 mg tablet 750 mg PO DAILY #5 tabs 01/12/24 Allergies Allergy/AdvReac Type Severity Reaction Status Date / Time sulfamethoxazole (From Allergy Unknown unknown Verified 01/13/24 15:42 Bactrim) trimethoprim (From Bactrim) Allergy Unknown unknown Verified 01/13/24 15:42 General Stated Complaint: Urinary MIKEL: 4 Review of Systems All systems reviewed & are unremarkable except as noted in HPI and below Genitourinary Genitourinary: Reports as per HPI, Reports hematuria and Reports oliguria Exam Narrative Exam Narrative: Constitutional: Alert and oriented x3. Appears stated age. Normal body habitus. Head: Normocephalic, no trauma. Chest: RRR, Normal S1, S2, distal pulses intact. Resp: Lungs clear to auscultation bilaterally, no wheezes, rales, or rhonchi. Abdomen: Soft, non-distended, Normoactive bowel sounds all 4 quads. Bloody urine noted in leg bag does have active urine output in the catheter tubing. Course Vital Signs Vital signs: Vital Signs Temperature 36.6 C 01/13/24 15:38 Pulse 98 H 01/13/24 15:38 Respiratory Rate 18 01/13/24 15:38 Blood Pressure 139/70 01/13/24 15:38 Pulse Oximetry 96 01/13/24 15:38 Temperature 36.6 C 01/13/24 15:38 Temperature Source Temporal Artery Scan 01/13/24 15:38 Pulse 98 H 01/13/24 15:38 Respiratory Rate 18 01/13/24 15:38 Blood Pressure 139/70 01/13/24 15:38 Blood Pressure Position Sitting 01/13/24 15:38 Pulse Oximetry 96 01/13/24 15:38 Oxygen Delivery Method Room Air 01/13/24 15:38 Oxygen Flow Rate 0 01/13/24 15:38 Pain Level 4 01/13/24 15:38 Medical Decision Making 78-year-old male presents to the ER for clogged catheter. Patient does not currently have a urinary tract infection is taking antibiotics. He does see Dr. Loaiza with urology. He reports that he has had decreased p.o. intake today. He was able to flush it prior to arrival and it is now draining red urine output. He reports earlier that he did have some clots however no clots noted now. He does not feel like his bladder is distended or full. We will give him some more supplies for further flushing and discharge home. Patient does not feel his bladder is distended at this time. He does have active drainage output. He has had decreased p.o. intake which is attributing to the decreased urination. Will send patient home with supplies to flush if needed discussed return strict return instructions and home care and follow-up care he verbalized understanding. At this time his catheter does not need to be flushed as it is actively draining. This text was generated using [employer] dictation system, please disregard any oddities of phrase or misspellings. Medical Records Medical records reviewed: Yes I reviewed the patient's medical records. Quality:[facility] Health Related Social Needs: No Data to Display PFSH All Active Problems (Updated 01/13/24 @ 16:20 by Dorothy Adler NP) Oh catheter status (Acute) Acute UTI (Acute) Hematuria (Acute) Abnormal CT scan, pelvis (Acute) Abnormal abdominal CT scan (Acute) Acute urinary retention (Acute) Acute urinary retention (Acute) Clot retention of urine (Acute) Essential hypertension (Acute) Malignant tumor of prostate (Chronic) Medical History GERD (gastroesophageal reflux disease) Insomnia Erectile dysfunction Rosacea Social History Smoking/Tobacco Use Status: Never Smoking risk assessment performed?: Yes Alcohol Intake: current Alcohol Intake frequency: 3 or more drinks per day Alcohol type: beer Drug use: Never Substance use type: does not use Housing: house Do you feel safe at home: Yes Do you feel safe in your relationship?: Yes
== END 2024-01-13 16:28 | disposition home or self-care (01) ==
PROVIDERS: Emergency Provider Registered Nurse Emergency; PCP Family Medicine
DX: T83.9XXA Unspecified complication of genitourinary prosthetic device, implant and graft, initial encounter (principal)
CPT/HCPCS: 99281; 99282

== ENCOUNTER → 2024-01-15 08:41 | Outpatient (BNVA) | payer MEDICARE, BC, SELFPAY | PROVIDERS: PCP Family Medicine; Referring Provider Family Medicine; Visit Provider Urology | DX: N32.0 Bladder-neck obstruction (principal); C61 Malignant neoplasm of prostate | CPT/HCPCS: 99213 ==

== ENCOUNTER 2024-01-25 07:57 | Observation (INO) | payer MEDICARE, BC, SELFPAY ==
[2024-01-25] VITALS (20 sets, daily range): BP systolic 118–160; BP diastolic 62–88; PULSE 60–91; RESP 12–21; TEMP 36.1–36.7; O2SAT 96–99; BMI 28.5
--- NOTE | 2024-01-25 07:09 | W.ANESPRE ---
General Info Date of Service Date Performed: 01/25/24 Height: 5 ft 11 in Weight: 92.986 kg Body Mass Index (BMI): 28.5 Surgical Procedure: Operation Date: 01/25/24 09:55 Proposed Procedure Side Surgeon p Cystoscopy Michele Loaiza MD s Transurethral Incision of Bladder Neck Michele Loaiza MD Meds Allergies and Home Medications Allergies Allergy/AdvReac Type Severity Reaction Status Date / Time sulfamethoxazole (From Allergy Unknown Other (See Verified 01/25/24 08:12 Bactrim) Comment) trimethoprim (From Bactrim) Allergy Unknown Other (See Verified 01/25/24 08:12 Comment) Home Medication ?Medication ?Instructions ?Recorded amlodipine 5 mg tablet 5 mg PO BID 08/04/23 azelaic acid 15 % topical gel 1 applic topical BID 08/04/23 lisinopril 20 mg tablet 20 mg PO BID 08/04/23 metronidazole 0.75 % topical cream 1 applic topical DAILY 08/04/23 pantoprazole 40 mg tablet,delayed 40 mg PO DAILY 08/04/23 release potassium chloride 20 mEq 30 meq PO DAILY 08/04/23 tablet,extended release triamterene 75 1 tab PO DAILY 08/04/23 mg-hydrochlorothiazide 50 mg tablet meclizine 50 mg tablet (Antivert) 50 mg PO BID 12/02/23 Current Visit Medications: Current Medications Generic Name Dose Route Start Last Admin Trade Name Freq PRN Reason Stop Dose Admin Ringer's Solution 1,000 mls @ 80 mls/hr 01/25/24 06:00 IV 01/25/24 23:59 INFUSION MARTHA Cefazolin Sodium/Dextrose 2 gm in 50 mls @ 100 mls/hr 01/25/24 06:00 Ancef Duplex IVPB 01/25/24 23:59 PREOP MARTHA IV Miscellaneous Supplies 1 each 01/25/24 06:00 Iv Access IV 01/25/24 23:59 DIRECTED MARTHA Sodium Chloride 0 ml 01/25/24 06:00 Normal Saline Flush 10 Ml Syr IV 01/25/24 23:59 PRN PRN Sodium Chloride 0 ml 01/25/24 06:00 Normal Saline 10 Ml Vial IJ 01/25/24 23:59 DIRECTED PRN Sterile Water 0 ml 01/25/24 06:00 Water,Injection,Sterile 10 Ml Vial IJ 01/25/24 23:59 DIRECTED PRN PFSH Active Problems Active Problems: Problem Status Onset Code Bladder neck contracture Acute N32.0 Oh catheter status Acute Z97.8 Acute UTI Acute N39.0 Hematuria Acute R31.[address] scan, pelvis Acute R93.[address] scan Acute R93.5 Acute urinary retention Acute R33.8 Acute urinary retention Acute R33.8 Clot retention of urine Acute R33.8 Essential hypertension Acute I10 Malignant tumor of prostate Chronic C61 Medical History Medical History GERD (gastroesophageal reflux disease) Insomnia Erectile dysfunction Rosacea Medical History Comments:: Oh in situ Tobacco Smoking/Tobacco Use Status: Never Alcohol Alcohol Intake: current Alcohol intake frequency: 3 or more drinks per day Alcohol type: beer Substance Use Substance use: Never Substance use type: does not use Vital Signs and Lab Results Vital Signs Most Recent Vital Signs in EMR: Temp Pulse Resp BP Pulse Ox 36.2 C L 91 H 18 141/72 H 98 01/25/24 08:14 01/25/24 08:14 01/25/24 08:14 01/25/24 08:14 01/25/24 08:14 Lab Results Blood Type / Crossmatch: Antibody Screen NEGATIVE 01/08/24 Complete Blood Count: White Blood Count 7.39 10^3/uL (4.4-10.8) 01/08/24 15:25 Red Blood Count 4.51 10^6/uL (4.36-5.78) 01/08/24 15:25 Hemoglobin 13.8 g/dL (13.5-17.5) 01/08/24 15:25 Hematocrit 39.6 % (40.0-50.0) L 01/08/24 15:25 Platelet Count 329 10^3/uL (130-400) 01/08/24 15:25 Complete Metabolic Panel: Sodium 135 mmol/L (136-145) L 01/08/24 15:25 Potassium 3.2 mmol/L (3.5-5.1) L 01/08/24 15:25 Chloride 95 mmol/L (98-107) L 01/08/24 15:25 Carbon Dioxide 27.8 mmol/L (21.0-32.0) 01/08/24 15:25 BUN 13 mg/dL (7-18) 01/08/24 15:25 Creatinine 0.7 mg/dL (0.70-1.30) 01/08/24 15:25 Est GFR (CKD-EPI 2020) 95.49 (mL/min/1.73m2) 01/08/24 15:25 Calcium 9.6 mg/dL (8.5-10.1) 01/08/24 15:25 Albumin 4.1 g/dL (3.4-5.0) 01/08/24 15:25 Glucose 106 mg/dL (74-106) 01/08/24 15:25 Liver Function Panel: Alanine Aminotransferase (ALT/SGPT) 27 U/L (16-63) 01/08/24 15:25 Aspartate Amino Transf (AST/SGOT) 20 U/L (15-37) 01/08/24 15:25 Coagulation Panel: INR International Normalized Ratio 1.0 (0.9-1.1) 01/08/24 15:25 Prothrombin Time 10.5 sec (9.1-11.1) 01/08/24 15:25 Activated Partial Thromboplast Time 29.0 sec (23.6-32.8) 01/08/24 15:25 Cardiac Panel: No Data to Display Arterial Blood Gas: No Data to Display Venous Blood Gas: No Data to Display Pancreas Panel: No Data to Display Thyroid Panel: No Data to Display Infectious Disease: No Data to Display Blood Cultures: No Data to Display Toxicology Panel: No Data to Display Imaging and Studies Imaging and Studies Study information below may be from another EMR and interpreted by another provider. Please see original notes in EMR for more complete details. EKG Summary: 11/26/2023: Exam: Resting ECG [facility]: E HR:63 bpm ECG Measurements Heart Rate 63 AXIS IL 150 P 34 QRSd 107 QRS 48 QT 439 T15 QTc 449 Conclusion Sinus rhythm...normal P axis, V-rate 60- 99 Normal sinus rhythm at a rate of 63 with interventricular conduction delay and a QRS of 107 ms. Normal axis. Intervals within normal limits. No ST segment abnormalities. No T wave inversions. T wave flattening in V2 has improved compared to prior. Prior dated yesterday. I have reviewed and I agree with the emergency room physician's ECG interpretation. Anesthesia Assessment and Plan Anesthesia History Personal History: No History of Anesthesia Complications Family History: No Family History of Anesthesia Complications Exercise Tolerance Exercise Tolerance: Metabolic Equivalents>4 Cardiac & Pulmonary Exam Cardiac Exam: Normal S1/S2 Heart Sounds Pulmonary Exam: Clear Bilateral Breath Sounds Implantable Cardiac Device Does patient have a Pacemaker or an ICD?: No Airway Exam Known Difficult Airway: No Mallampati Class: 2 Mouth Opening: Normal (> 3cm) Thyromental Distance: Greater than 3 cm Neck Range of Motion: Full ROM Neck Circumference: Normal Teeth Condition: Normal Dentition (front teeth small chips) ASA Classification ASA Score: ASA 2 Emergency Case?: No NPO Status NPO Status: NPO Clears >2 hours, Solids >8 hours Anesthesia Plan Resuscitation Status: Full Code Anesthesia Technique: General Anesthesia Airway Planned: Natural Airway Monitors Used: Standard Monitors Preoperative Comments:: 78 yo male with bladder neck contraction for cysto. Sig PMHx: HTN (amlodipine, lisinopril), GERD (pantoprazole. well controlled), prostate CA, never smoker, daily EtOH. EKG: sinus. Previous Anes: - TURBT, prop, natural airway, no issues.
[2024-01-25] MEDS: Lactated Ringers 1,000 ML 80 ML IV (08:45)
--- NOTE | 2024-01-25 09:37 | HPE_ITS ---
Date of service: 01/25/24 Time of Service: 09:37 Assessment and Plan Assessment and plan (1) Acute urinary retention: Status: Acute Assessment and plan: For cystoscopy and transurethral incision of the bladder neck. We will plan to place an irrigating catheter after the procedure in case we need to run continuous bladder irrigation. History of Present Illness History of Present Illness Chief Complaint: urinary retention Narrative: This is a 78-year-old gentleman who has a history of prostate cancer. He was treated with a radical prostatectomy followed by external beam radiation. He has had episodes of gross hematuria and clot retention. 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 We recently cleared polyps the clots from his bladder, but he is still unable to void. We suspect the issue is a bladder neck contracture and he presents for tr ansurethral incision of the bladder neck. Review of Systems Narrative: No fevers or chills No vision change or dysphasia No diabetes or thyroid No shortness of breath, cough or hemoptysis No chest pain or palpitations GERD. No hepatitis, ulcers, jaundice, diarrhea or constipation No seizures, strokes or peripheral neuropathy No bleeding disorders or anemia No gout or arthralgia PFSH All Active Problems (Updated 01/25/24 @ 09:51 by Michele Loaiza MD) Bladder neck contracture (Acute) Oh catheter status (Acute) Acute UTI (Acute) Hematuria (Acute) Abnormal CT scan, pelvis (Acute) Abnormal abdominal CT scan (Acute) Acute urinary retention (Acute) Clot retention of urine (Acute) Essential hypertension (Acute) Malignant tumor of prostate (Chronic) Medical History GERD (gastroesophageal reflux disease) Insomnia Erectile dysfunction Rosacea Social History Smoking/Tobacco Use Status: Never Smoking risk assessment performed?: Yes Alcohol Intake: current Alcohol Intake frequency: 3 or more drinks per day Alcohol type: beer Drug use: Never Substance use type: does not use Housing: house Do you feel safe at home: Yes Do you feel safe in your relationship?: Yes Meds Allergies and Home Medications Allergies Allergy/AdvReac Type Severity Reaction Status Date / Time sulfamethoxazole (From Allergy Unknown Other (See Verified 01/25/24 08:12 Bactrim) Comment) trimethoprim (From Bactrim) Allergy Unknown Other (See Verified 01/25/24 08:12 Comment) Home Medications ?Medication ?Instructions ?Recorded ?Confirmed ?Type amlodipine 5 mg tablet 5 mg PO BID 08/04/23 01/25/24 History azelaic acid 15 % topical gel 1 applic topical BID 08/04/23 01/22/24 History lisinopril 20 mg tablet 20 mg PO BID 08/04/23 01/25/24 History metronidazole 0.75 % topical cream 1 applic topical DAILY 08/04/23 01/22/24 History pantoprazole 40 mg tablet,delayed 40 mg PO DAILY 08/04/23 01/25/24 History release potassium chloride 20 mEq 30 meq PO DAILY 08/04/23 01/22/24 History tablet,extended release triamterene 75 1 tab PO DAILY 08/04/23 01/25/24 History mg-hydrochlorothiazide 50 mg tablet meclizine 50 mg tablet (Antivert) 50 mg PO BID 12/02/23 01/25/24 History Exam Const General: cooperative Neck Neck: supple Resp Effort & Inspection: normal respiratory effort Auscultation: clear to auscultation bilaterally Cardio Rate: regular rate Rhythm: regular rhythm GI Inspection: normal to inspection Palpation: soft and no masses Neuro General: patient alert, patient awake and patient oriented x3 Results Last Vital Signs Temp 36.2 C L 01/25/24 08:14 Pulse 91 H 01/25/24 08:14 Resp 18 01/25/24 08:14 BP 141/72 H 01/25/24 08:14 Pulse Ox 98 01/25/24 08:14 Time Spent Time spent with Patient: <40 minutes Time was spent: other
[2024-01-25] MEDS: ceFAZolin 2 GM/50 ML BAG IVPB (10:11)
[2024-01-25] MEDS: Lidocaine 2% Jelly 11 ML SYR (10:51)
--- NOTE | 2024-01-25 11:20 | BRIEFOP_ITS ---
Date of service: 01/25/24 Time of Service: 11:20 Brief Operative Note Procedure/Pre & Post Op Diagnoses/Portfolio Assistant: Operation Date: 01/25/24 09:55 Actual Procedures p Cystoscopy w/ Transurethral Incision of Bladder Neck(Not Applicable) - Michele Loaiza MD Pre-Op Diagnosis: Acute urinary Retention Post-Op Diagnosis: Acute urinary Retention Anesthesia Anesthesia Type: Local By Surgeon and General LMA/ETT 5 cc Specimen/Culture Specimen(s): None Complications Complications: None Additional Procedure Notes Note: 20 Persian coude tipped irrigating catheter with 30 cc sterile water in balloon
[2024-01-25] MEDS: fentaNYL 100 MCG/2 ML VIAL IVP ×2 (11:24→11:35)
--- NOTE | 2024-01-25 12:10 | W.PM.OP ---
Date of service: 01/25/24 Time of Service: 12:10 Operative Note Operative Note DATE OF PROCEDURE: 01/25/24 PRE-OP DIAGNOSIS: Urinary retention due to bladder neck contracture POST-OP DIAGNOSIS: same PROCEDURE: Cystoscopy with transurethral incision of the bladder neck SURGEON: Michele Loaiza ANESTHESIA TYPE: Local By Surgeon and General LMA/ETT Refer to Anesthesia Record ESTIMATED BLOOD LOSS: 5 PATHOLOGY: none sent COMPLICATIONS: None Patient was transported to: PACU Patient's condition: stable Implants: 20 Paraguayan coud? tipped irrigating catheter with 30 cc of sterile water in balloon Indications: This is a 78-year-old gentleman who has a history of prostate cancer. He was treated with a laparoscopic radical prostatectomy followed by external beam radiation. He has had a few episodes of gross hematuria and clot retention related to radiation cystitis. More recently, he has had urinary retention not associated with clots in the urine. He has failed multiple voiding trials. On cystoscopy, he does have a slight narrowing of the bladder neck and he presents for transurethral incision of his bladder neck contracture Findings: Bladder neck contracture Procedure Description: The patient was given IV antibiotics and brought to the operating room on 01/25/2024. After successful induction of general anesthesia, he was placed in the dorsal lithotomy position. His catheter balloon was deflated and his catheter was removed. His genitalia was then prepped and draped. A 24 Par[place]ayan resectoscope sheath was passed through the urethra up to the bladder neck. The narrow bladder neck was identified and we incised the bladder neck at the 5 and 7 o'clock position using bipolar cautery and a knife electrode. The bladder neck then appeared open at rest. No additional abnormalities were found on inspection of the bladder. The bladder was then filled with irrigant and the resectoscope was removed. A 20 Par[place]ayan hematuria catheter was passed through the urethra into the bladder. The catheter balloon was inflated with 30 cc of sterile water. Continuous bladder irrigation with saline was then begun. The patient tolerated this procedure well with no complications.
--- NOTE | 2024-01-25 12:27 | W.PC.ACHO ---
Registration Status: Primary Language: Preferred Language: Medical / Surgical History (Last Reviewed 01/25/24 @ 08:23 by Dawn Tan, BEAU) GERD (gastroesophageal reflux disease) Insomnia Erectile dysfunction Rosacea Most Recent Vital Signs Temperature 36.1 C L 01/25/24 12:19 Temperature Source Tympanic 01/25/24 12:19 Pulse 65 01/25/24 12:19 Pulse Rhythm Regular 01/25/24 08:14 Pulse 65 01/25/24 11:46 Respiratory Rate 17 01/25/24 12:19 Respiratory Depth Normal 01/25/24 08:14 Blood Pressure 126/75 01/25/24 12:19 Blood Pressure Mean 90 01/25/24 11:46 Pulse Oximetry 96 01/25/24 12:19 Respiratory End-tidal CO2 33 01/25/24 11:37 Oxygen Delivery Method Room Air 01/25/24 12:19 Oxygen Flow Rate 0 01/25/24 12:19 Pain Level 4 01/25/24 12:19 Allergies sulfamethoxazole (From Bactrim) Allergy (Unknown, Verified 01/25/24 08:12) Other (See Comment) Red welts all over me trimethoprim (From Bactrim) Allergy (Unknown, Verified 01/25/24 08:12) Other (See Comment) Red welts all over me IV IV Catheter Type [Left Forearm Peripheral IV ] IV Catheter Gauge [Left 20 Forearm] Diet Orders Category Date Time Status Regular/Normal [DIET] Nutrition 01/25/24 Lunch Active Intake and Output - 24 Hour Total 01/15/24 10:26 thru 01/25/24 11:52 Intake Total 750 Balance 750 Weight 90.3 kg Intake: IV 750 Urinary Catheter Urinary Catheter Date of 01/25/24 Insertion [Urethral (Oh)] Time of insertion [Urethral ( 10:58 Oh)] Problems (Last Reviewed 01/25/24 @ 08:23 by Dawn Tan, BEAU) Acute urinary retention (Acute) v v v v v v v v v Sending and/or Receiving Nurses: Please use comment section below to note any information pertinent to the patient hand-off not included above. Information / Comments: pt arrives from PACU to 212 via stretcher Report received from: OR nurse, 12:15
--- NOTE | 2024-01-25 13:21 | W.ANESPOSTOP ---
Postoperative Evaluation Date, Time and Location Date Performed: 01/25/24 Time Performed: 13:21 Patient Location: PACU Vital Signs Most Recent Imported Vital Signs: Most Recent Vital Signs Temp Pulse Resp BP Pulse Ox 36.1 C L 65 17 126/75 96 01/25/24 12:19 01/25/24 12:19 01/25/24 12:19 01/25/24 12:19 01/25/24 12:19 Pain Score Most Recent Pain Score: Most Recent Pain Score Pain Level 4 01/25/24 12:19 Assessment Mental Status: Awake (Alert & Oriented to Patient Baseline) Airway and Respiratory Function: Patent airway with normal (patient baseline) respiratory exam Cardiovascular Function: Hemodynamically Stable Hydration Status: Adequately Hydrated Nausea & Vomiting: No Nausea or Vomiting Pain: Pain is tolerable per patient Peripheral Nerve Block: Patient did not receive a nerve block
[2024-01-25] MEDS: Meclizine 25 MG TAB 50 MG PO (20:17)
[2024-01-25] MEDS: Docusate Sodium 100 MG CAP PO (20:17)
[2024-01-25] MEDS: amLODIPine 5 MG TAB PO (20:18)
[2024-01-25] MEDS: Lisinopril 20 MG TAB PO (20:18)
[2024-01-25] MEDS: Acetaminophen 325 MG TAB 650 MG PO (20:36)
[2024-01-26] MEDS: Acetaminophen 325 MG TAB 650 MG PO ×2 (01:31→06:07)
[2024-01-26 07:22] VITALS: BP 106/60; PULSE 65; RESP 16; TEMP 36.8; O2SAT 96
--- NOTE | 2024-01-26 07:33 | W.PM.PROGNOT ---
Date of Service Date of service: 01/26/24 Time of Service: 07:33 Assessment and Plan Assessment and plan (1) Bladder neck contracture: Status: Acute Assessment and plan: We will go ahead and remove his Oh catheter today. As long as he is able to void, he should be able to go back home with no additional medications needed. Subjective Subjective Interval history since last seen: He did not sleep well, but had no episodes of clot retention. He has been able to tolerate oral medication and nutrition. Exam Narrative Exam Narrative: He does not appear septic or toxic His vital signs are documented elsewhere He is awake and alert His urine is clear and the catheter drainage tubing Objective Last Vital Signs Temp 36.8 C 01/26/24 07:22 Pulse 65 01/26/24 07:22 Resp 16 01/26/24 07:22 BP 106/60 01/26/24 07:22 Pulse Ox 96 01/26/24 07:22 PAWSS Have you Been Recently Intoxicated or Drunk Within the Last 30 days?: No Have you Ever Experienced Previous Episodes of Alcohol Withdrawal?: No Have you ever Experienced Withdrawal Seizures?: No Have you ever Experienced Delirium Tremens(DT)s?: No Have you ever undergone Alcohol Rehabilitation Treatment (i.e, inpt ot outpatient treatment programs)?: No Have you ever Experienced Blackouts?: No Have you ever Combined Alcohol with other Downers within the last 90 days?: No Have you ever Combined Alcohol with any other Substance of Abuse during the last 90 days?: No Positive Blood Alcohol level on Presentation? [PCS.BAL]: No Evidence of Increased Autonomic Activity (i.e. HR>120, tremor, sweating, agitation, nausea)?: No Result: 0 Time Spent with Patient Time Spent with Patient: <25 minutes Time was spent: other
--- NOTE | 2024-01-26 07:55 | W.PM.DS.N ---
Date of service: 01/26/24 Time of Service: 07:55 DS: Diagnosis Discharge Diagnosis (1) Bladder neck contracture: Status: Acute Discharge Plan Disposition Patient Disposition: Home Condition: Stable Discharge Details Reason For Visit: urinary retention Admit Date/Time: 01/25/24 07:57 Admit Provider: Michele Loaiza Attending Provider: Michele Loaiza Primary Care Provider: Michael Piña Hospital Course Hospital Course: The patient was admitted and taken to the operating room on 01/25/2020 for where he underwent cystoscopy with incision of his bladder neck. Following the procedure, I placed a 20 Khmer irrigating catheter. We ran 1 or 2 bags of bladder irrigation before discontinuing the irrigation and leaving the catheter to gravity drainage. He was observed overnight and the urine remained clear. The catheter is being removed on postoperative day #1 he is being discharged to home after voiding. Home Meds and New Rx's Prescriptions: No Action lisinopril 20 mg tablet 20 mg PO BID amlodipine 5 mg tablet 5 mg PO BID potassium chloride 20 mEq tablet extended release 30 meq PO DAILY pantoprazole 40 mg tablet,delayed release (DR/EC) 40 mg PO DAILY triamterene-hydrochlorothiazid 75-50 mg tablet 1 tab PO DAILY metronidazole 0.75 % cream 1 applic topical DAILY azelaic acid 15 % gel 1 applic topical BID meclizine [Antivert] 50 mg tablet 50 mg PO BID Discharge Instructions Additional Instructions: Follow-up appointment in our office in about a month but please ask the patient to call sooner if he notices any change in his voiding symptoms. Activity:: Activity as Tolerated Equipment/Supplies:: No Equipment Needed Diet:: As Tolerated Discharge Orders Discharge Orders: Discharge Order (Routine); Ordered 01/26/24 Ordered By: Michele Loaiza Discharge Data Discharge Comment: patient must void prior to discharge DS: Summary Time Spent with Patient providing and/or coordinating discharge services: Less than 30 minutes Status at Discharge Functional status at discharge: independent ambulation Overall status at discharge: patient is back to baseline Mental Status: mental status grossly normal Speech and Movement: speech and movement normal Mood: congruent mood Affect: normal affect Quality:SDOH Health Related Social Needs: No Data to Display Exam Narrative Exam Narrative: On the morning of discharge, the patient looks well His vital signs are documented elsewhere His chest wall motion is normal. He does not appear short of breath at rest. His abdomen is soft. His bladder is not distended His Oh catheter has clear urine present He is awake and alert Psych Mental Status: mental status grossly normal Speech and Movement: speech and movement normal Mood: congruent mood Affect: normal affect DS: Data Vitals/I&O Vitals and I&O: Vital Signs Temperature 36.8 C 01/26/24 07:22 Temperature Source Tympanic 01/26/24 07:22 Pulse 65 01/26/24 07:22 Pulse Rhythm Regular 01/25/24 12:15 Pulse 65 01/25/24 11:46 Respiratory Rate 16 01/26/24 07:22 Respiratory Effort Normal 01/25/24 12:15 Respiratory Depth Normal 01/25/24 12:15 Respiratory Pattern Normal 01/25/24 12:15 Blood Pressure 106/60 01/26/24 07:22 Blood Pressure Mean 90 01/25/24 11:46 Pulse Oximetry 96 01/26/24 07:22 Respiratory End-tidal CO2 33 01/25/24 11:37 Oxygen Delivery Method Room Air 01/26/24 07:22 Oxygen Flow Rate 0 01/26/24 07:22 Pain Level 2 01/26/24 07:22 Intake & Output 01/25/24 01/25/24 01/26/24 11:59 23:59 11:59 Intake Total 750 / 6238.519 4016.333 / 1775.333 300 / 300 Output Total 1200 / 1200 2000 / 2000 Balance 750 / 575.333 -174.667 / 575.333 -1700 / -1700 Weight 90.3 kg Intake: IV 750 / 855.333 105.333 / 855.333 Oral 920 / 920 300 / 300 Output: Urine 1200 / 1200 2000 / 2000 Other: Urine Color Bright Red Yellow Urine Appearance Clots Clear PFSH All Active Problems Bladder neck contracture (Acute) Oh catheter status (Acute) Acute UTI (Acute) Hematuria (Acute) Abnormal CT scan, pelvis (Acute) Abnormal abdominal CT scan (Acute) Acute urinary retention (Acute) Clot retention of urine (Acute) Essential hypertension (Acute) Malignant tumor of prostate (Chronic) Medical History GERD (gastroesophageal reflux disease) Insomnia Erectile dysfunction Rosacea Social History Smoking/Tobacco Use Status: Never Smoking risk assessment performed?: Yes Alcohol Intake: current Alcohol Intake frequency: 3 or more drinks per day Alcohol type: beer Drug use: Never Substance use type: does not use Housing: house Do you feel safe at home: Yes Do you feel safe in your relationship?: Yes Time Spent with Patient Time Spent with Patient: <45 minutes Time was spent: other
[2024-01-26] MEDS: Lisinopril 20 MG TAB PO (08:02)
[2024-01-26] MEDS: Meclizine 25 MG TAB 50 MG PO (08:02)
[2024-01-26] MEDS: amLODIPine 5 MG TAB PO (08:02)
[2024-01-26] MEDS: Pantoprazole 40 MG TABCR PO (08:02)
[2024-01-26] MEDS: Potassium Chloride 10 MEQ TABCR 30 MEQ PO (08:03)
[2024-01-26] MEDS: Docusate Sodium 100 MG CAP PO (08:03)
--- NOTE | 2024-01-26 10:09 | PDOC.CMIN ---
Date of service: 01/26/24 Time of Service: 10:09 Care Management Initial Assmt Initial Assessment Reason for Hospitalization: urinary retention Functional Status/Living Situation Town of Residence: [place] Resides with: Spouse Medications Medication Management: No Issues/Barriers identified Advance Directives Advance Directives: Do you have an Advance Directive: N 12/02/23 17:50 AD On File at [facility]: N 11/24/23 15:13 Date Asked 01/25/24 01/22/24 16:25 AD Date Reviewed COLST On File at [facility] No 12/02/23 17:50 COLST Date Scanned Code Status Resuscitation Status Full Code Portal Pt does not currently have a portal and education provided: No Insurance Coverage/Financial Issues Insurance: Medicare BC/ Care Team Visit Care Team Role Provider Type Michael Piña MD Primary Care Provider NON-[facility] STAFF PHYSICIAN Michele Loaiza MD Admit Provider [facility] STAFF PHYSICIAN Attending Provider Discharge Potential Discharge Needs: Surgical F/U Appt Anticipated Barriers to Discharge: None Identified Patient/Family Education Needs: Review discharge instructions, discuss Ask Me Three Transportation: Private vehicle Plan: Anticipate Jose will be discharged home with no new services. He will follow up with Urology and his plan of care and transport via private vehicle. CM will continue to assess for discharge needs. PFSH All Active Problems Bladder neck contracture (Acute) Oh catheter status (Acute) Acute UTI (Acute) Hematuria (Acute) Abnormal CT scan, pelvis (Acute) Abnormal abdominal CT scan (Acute) Acute urinary retention (Acute) Clot retention of urine (Acute) Essential hypertension (Acute) Malignant tumor of prostate (Chronic) Medical History GERD (gastroesophageal reflux disease) Insomnia Erectile dysfunction Rosacea Social History Smoking/Tobacco Use Status: Never Smoking risk assessment performed?: Yes Alcohol Intake: current Alcohol Intake frequency: 3 or more drinks per day Alcohol type: beer Drug use: Never Substance use type: does not use Housing: house Do you feel safe at home: Yes Do you feel safe in your relationship?: Yes SDOH(Care Management) Screening Will the Patient Participate in the Screening?: Yes Do you worry about having a steady place to live?: no Problems where you live: no known problems In the past 12 months, have you had to go without electric, gas, oil or water in your home?: no Have you or anyone in your house had to go without enough food to eat?: no Has lack of transportation kept you from medical appointments or from doing things needed for daily living?: no Has anyone in your support network made you feel unsafe for any reason?: no
--- NOTE | 2024-01-26 14:50 | PDOC.CMPRO ---
Date of service: 01/26/24 Time of Service: 14:50 Care Management Progress Note Progress Note Text Progress Note Text: Jose was admitted on 01/25/24 for Cystoscopy with transurethral incision of the bladder neck. The procedure went well and no complications were identified. Jose will be discharged home with no new services. He will follow up with urology in about a month. His guillen catheter was removed prior to discharge as no bleeding was noted. SDOH(Care Management) Screening Will the Patient Participate in the Screening?: Yes Do you worry about having a steady place to live?: no Problems where you live: no known problems In the past 12 months, have you had to go without electric, gas, oil or water in your home?: no Have you or anyone in your house had to go without enough food to eat?: no Has lack of transportation kept you from medical appointments or from doing things needed for daily living?: no Has anyone in your support network made you feel unsafe for any reason?: no
== END 2024-01-26 10:57 | disposition home or self-care (01) ==
LOC: PDS 10:38 → MS 13:51 → PDS 01-26 10:49
PROVIDERS: Admitting Provider Urology; PCP Family Medicine; Visit Provider Urology
PROC: 0TJB8ZZ Inspection of Bladder, Via Natural or Artificial Opening Endoscopic (ICD-10-PCS; CPT 52000; principal; 2024-01-25 09:45)
DX: N32.0 Bladder-neck obstruction (principal); R33.8 Other retention of urine; I10 Essential (primary) hypertension; C61 Malignant neoplasm of prostate; G47.00 Insomnia, unspecified; K21.9 Gastro-esophageal reflux disease without esophagitis; Z79.899 Other long term (current) drug therapy
CPT/HCPCS: 52276; 99239; G0378; J0690; J1100; J2405; J2704; J3010

== ENCOUNTER → 2024-01-26 16:28 | Outpatient (BNVA) | payer MEDICARE, BC, SELFPAY | PROVIDERS: PCP Family Medicine; Referring Provider Family Medicine; Visit Provider Urology | DX: R33.8 Other retention of urine (principal) | CPT/HCPCS: 51702 ==

== ENCOUNTER → 2024-02-02 09:55 | Outpatient (BNVA) | payer MEDICARE, BC, SELFPAY | PROVIDERS: PCP Family Medicine; Referring Provider Family Medicine; Visit Provider Urology | DX: C61 Malignant neoplasm of prostate (principal); N32.0 Bladder-neck obstruction | CPT/HCPCS: 51702 ==

== ENCOUNTER → 2024-03-03 10:16 | Outpatient (BNVA) | payer MEDICARE, BC, SELFPAY | PROVIDERS: PCP Family Medicine; Referring Provider Family Medicine; Visit Provider Urology | DX: Z46.6 Encounter for fitting and adjustment of urinary device (principal); C61 Malignant neoplasm of prostate; R33.8 Other retention of urine | CPT/HCPCS: 51702; 99214 ==

== ENCOUNTER 2024-04-12 12:06 | Emergency (ER) | payer MEDICARE, BC, SELFPAY ==
[2024-04-12 12:10] VITALS: BP 161/99; PULSE 105; RESP 14; TEMP 37.3; O2SAT 98
--- NOTE | 2024-04-12 12:24 | ED.GENADUL_ITS ---
Discharge Plan Disposition Patient Disposition: Home Condition: Stable Discharge Details Clinical Impression: Complication, blocked Oh catheter, Malignant tumor of prostate, Essential hypertension Primary Care Provider: Michael Piña ED Provider: Annie Marinelli Home Meds and New Rx's Prescriptions: No Action lisinopril 20 mg tablet 20 mg PO BID amlodipine 5 mg tablet 5 mg PO BID potassium chloride 20 mEq tablet extended release 30 meq PO DAILY pantoprazole 40 mg tablet,delayed release (DR/EC) 40 mg PO DAILY triamterene-hydrochlorothiazid 75-50 mg tablet 1 tab PO DAILY metronidazole 0.75 % cream 1 applic topical DAILY azelaic acid 15 % gel 1 applic topical BID meclizine [Antivert] 50 mg tablet 50 mg PO BID Discharge Instructions Instructions: How to Care for Your Oh Catheter Additional Instructions: You were seen in the emergency department today because your Oh catheter was clogged. In our department a full physical examination performed, your Oh catheter was unable to be flushed so we replaced it. Your urinalysis had a large amount of blood in it, which is typical for a Oh catheter user. It was sent for culture and if there are any concerning infectious findings you will be notified. Please keep your appointment with urology for next week, and thank you for allowing us to be part of your care. HPI General Mode of arrival: ambulatory . Date/Time Provider Initiated Documentation: 04/12/24 12:14 . Limitations to Documentation: no limitations . Information obtained by: patient, family and old records reviewed . HPI Narrative: HPI: This is a 79-year-old male patient with a past medical history significant for prostate cancer, hypertension, indwelling Oh catheter who is presenting for evaluation of a clogged Oh. The patient reports that the Oh stopped draining about 1 to 2 hours ago, he tried flushing it at home without success. He states that he is otherwise in his normal state of health, denies fever, chills, abdominal or back pain. He has follow-up with the urologist in 1 week f or reassessment. The patient states that he has not noted any hematuria or clots. Exam: Gen: Awake and alert, in no apparent distress HEENT: Non-icteric sclera Neck: Supple Lungs: No apparent respiratory distress, normal respiratory effort. CV: Appears well perfused, strong distal pulses Abdomen: Non-distended, soft, nontender : Normal external male genitalia, Oh catheter in place, draining light red urine after changing MSK: Moves 4 extremities without apparent limitation in ROM Skin: Visualized skin without rashes, cyanosis. Neuro: Normal Gait, no obvious focal deficits or facial asymmetry. Speaks in full, clear sentences. Psych: Appropriate for situation. MDM: This is a 79-year-old male patient presenting for evaluation of clogged urinary catheter. Differential includes but is not limited to mechanical obstruction, clot, I certainly considered UTI though the patient denies symptoms of same. He has no evidence on physical examination for pyelonephritis or renal stones. ED Course: The patient's catheter was unable to be flushed, and so was replaced successfully in 1 attempt by RN. Urinalysis is most notable for hematuria, small leukocyte esterase, was sent for culture but in the absence of urinary tract infection symptoms, I am hesitant to empirically start this patient with a chronic indwelling Oh catheter on antibiotics. He has an appointment with urology already scheduled for the next week, and urine was draining freely from his Oh catheter on reassessment. At this time, the patient has had a full medical evaluation and is safe for discharge to home. They are hemodynamically stable, ambulatory, and tolerating PO. They are understanding of the follow-up plan and return precautions. They left our facility without incident. Annie Marinelli MD Related Data Home Medications ?Medication ?Instructions ?Recorded ?Confirmed amlodipine 5 mg tablet 5 mg PO BID 08/04/23 04/12/24 azelaic acid 15 % topical gel 1 applic topical BID 08/04/23 04/12/24 lisinopril 20 mg tablet 20 mg PO BID 08/04/23 04/12/24 metronidazole 0.75 % topical cream 1 applic topical DAILY 08/04/23 04/12/24 pantoprazole 40 mg tablet,delayed 40 mg PO DAILY 08/04/23 04/12/24 release potassium chloride 20 mEq 30 meq PO DAILY 08/04/23 04/12/24 tablet,extended release triamterene 75 1 tab PO DAILY 08/04/23 04/12/24 mg-hydrochlorothiazide 50 mg tablet meclizine 50 mg tablet (Antivert) 50 mg PO BID 12/02/23 04/12/24 Allergies Allergy/AdvReac Type Severity Reaction Status Date / Time sulfamethoxazole (From Allergy Unknown Other (See Verified 04/12/24 12:12 Bactrim) Comment) trimethoprim (From Bactrim) Allergy Unknown Other (See Verified 04/12/24 12:12 Comment) General Stated Complaint: Urinary MIKEL: 3 Course Vital Signs Vital signs: Vital Signs Temperature 37.3 C 04/12/24 12:10 Pulse 105 H 04/12/24 12:10 Respiratory Rate 14 04/12/24 12:10 Blood Pressure 161/99 H 04/12/24 12:10 Pulse Oximetry 98 04/12/24 12:10 Temperature 37.3 C 04/12/24 12:10 Temperature Source Temporal Artery Scan 04/12/24 12:10 Pulse 105 H 04/12/24 12:10 Respiratory Rate 14 04/12/24 12:10 Blood Pressure 161/99 H 04/12/24 12:10 Blood Pressure Position Sitting 04/12/24 12:10 Pulse Oximetry 98 04/12/24 12:10 Oxygen Delivery Method Room Air 04/12/24 12:10 Oxygen Flow Rate 0 04/12/24 12:10 Medical Decision Making Quality:SDOH Health Related Social Needs: No Data to Display PFSH All Active Problems (Updated 04/12/24 @ 13:44 by Annie Marinelli MD) Complication, blocked Oh catheter (Acute) Bladder neck contracture (Acute) Oh catheter status (Acute) Abnormal CT scan, pelvis (Acute) Abnormal abdominal CT scan (Acute) Essential hypertension (Acute) Malignant tumor of prostate (Chronic) Medical History (Updated 04/12/24 @ 13:44 by Annie Marinelli MD) Hematuria Acute UTI Clot retention of urine Acute urinary retention GERD (gastroesophageal reflux disease) Insomnia Erectile dysfunction Rosacea Social History Smoking/Tobacco Use Status: Never Smoking risk assessment performed?: Yes Alcohol Intake: current Alcohol Intake frequency: 0-2 drinks per day Alcohol type: beer Drug use: Never Substance use type: does not use Housing: house Do you feel safe at home: Yes Do you feel safe in your relationship?: Yes
[2024-04-12] MEDS: Lidocaine 2% Jelly 11 ML SYR UR (12:45)
[2024-04-12 13:05] LABS: Bilirubin Negative (Negative); Blood Large (Negative); Clarity Cloudy (Clear); Glucose Negative (Negative); Ketones Negative (Negative); Leukocyte Esterase Small (Negative); Nitrite Negative (Negative); Urobilinogen 0.2 mg/dL (Up to 0.2)
[2024-04-12 13:07] VITALS: BP 150/67; PULSE 70; RESP 16; TEMP 36.9; O2SAT 99
[2024-04-12 13:19] LABS: RBC >50 HPF (0-2)
[2024-04-12 13:20] LABS: C & S Indicated? Yes
[2024-04-12 13:55] VITALS: BP 132/60; PULSE 62; RESP 16; O2SAT 95
--- NOTE | 2024-04-14 07:46 | W.ED.FU ---
Date of service: 04/12/24 Follow Up Plan: culture results reviewed, likely contaminate or biofilm. No indication for abx.
== END 2024-04-12 13:55 | disposition home or self-care (01) ==
PROVIDERS: Emergency Provider Emergency Medicine; PCP Family Medicine
DX: T83.091A Other mechanical complication of indwelling urethral catheter, initial encounter (principal); I10 Essential (primary) hypertension; R31.0 Gross hematuria; C61 Malignant neoplasm of prostate
CPT/HCPCS: 51702; 99283; 81003; 81015; 87086

== ENCOUNTER → 2024-04-19 13:51 | Outpatient (BNVA) | payer MEDICARE, BC, SELFPAY | PROVIDERS: PCP Family Medicine; Visit Provider Urology | DX: R33.8 Other retention of urine (principal) | CPT/HCPCS: 99213 ==

== ENCOUNTER → 2024-05-17 14:22 | Outpatient (BNVA) | payer MEDICARE, BC, SELFPAY | PROVIDERS: PCP Family Medicine; Referring Provider Family Medicine; Visit Provider Urology | DX: C61 Malignant neoplasm of prostate (principal); R33.8 Other retention of urine | CPT/HCPCS: 51702 ==

== ENCOUNTER → 2024-06-21 15:23 | Outpatient (BNVA) | payer MEDICARE, BC, SELFPAY | PROVIDERS: PCP Family Medicine; Referring Provider Family Medicine; Visit Provider Nurse Practitioner Gerontology | DX: R33.8 Other retention of urine (principal); C61 Malignant neoplasm of prostate | CPT/HCPCS: 51705 ==

== ENCOUNTER → 2024-07-19 15:23 | Outpatient (BNVA) | payer MEDICARE, BC, SELFPAY | PROVIDERS: PCP Family Medicine; Referring Provider Family Medicine; Visit Provider Nurse Practitioner Gerontology | DX: C61 Malignant neoplasm of prostate (principal); Z43.5 Encounter for attention to cystostomy | CPT/HCPCS: 51702 ==

== ENCOUNTER 2024-08-11 18:29 | Outpatient (REF) | payer MEDICARE, BC, SELFPAY ==
[2024-08-11 21:39] LABS: Abs Immature Grans 0.04 10^3/uL (0.0-0.06); Absolute Basophil Count 0.04 10^3/uL (0.0-0.2); Absolute Eosinophil Count 0.16 10^3/uL (0.0-0.7); Absolute Lymphocyte Count 1.12 10^3/uL (1.2-3.4); Absolute Monocyte Count 0.84 10^3/uL (0.1-0.8); Absolute Neutrophil Count 4.23 10^3/uL (1.2-6.7); Basophils % 0.6 %; Eosinophils % 2.5 %; HCT 40.3 % (40.0-50.0); HGB 14.3 g/dL (13.5-17.5); Immature Grans % 0.6 %; Lymphocytes % 17.4 %; MCH 30.4 pg (27.0-33.0); MCHC 35.5 % (32.0-36.0); MCV 86 fL (80-95); Monocytes % 13.1 %; Neutrophils % 65.8 %; Platelet Count 284 10^3/uL (130-400); RDW 12.6 % (11.8-14.1); WBC 6.43 10^3/uL (4.4-10.8)
[2024-08-11 21:52] LABS: ALT 27 U/L (16-63); AST 23 U/L (15-37); Albumin 4.2 g/dL (3.4-5.0); Alkaline Phosphatase 72 U/L (46-116); Anion Gap 13.4 mmol/L (3-11); BUN 18 mg/dL (7-18); Bilirubin, Total 0.5 mg/dL (0.2-1.0); CO2 27.6 mmol/L (21.0-32.0); CREATININE 0.7 mg/dL (0.70-1.30); Calcium 9.4 mg/dL (8.5-10.1); Chloride 92 mmol/L (98-107); Glucose 104 mg/dL (74-106); Potassium 3.1 mmol/L (3.5-5.1); Sodium 133 mmol/L (136-145); Total Protein 7.5 g/dL (6.4-8.2)
[2024-08-12 18:29] LABS: PSA, Diagnostic <0.1 ng/mL (<=6.5)
== END 2024-08-11 18:30 | disposition home or self-care (01) ==
LOC: NCHCN 18:29
PROVIDERS: PCP Family Medicine; Visit Provider Family Medicine
DX: I10 Essential (primary) hypertension (principal); C61 Malignant neoplasm of prostate
CPT/HCPCS: 80053; 84153; 85025

== ENCOUNTER → 2024-08-16 14:10 | Outpatient (BNVA) | payer MEDICARE, BC, SELFPAY | PROVIDERS: PCP Family Medicine; Referring Provider Family Medicine; Visit Provider Nurse Practitioner Gerontology | DX: C61 Malignant neoplasm of prostate (principal) | CPT/HCPCS: 51702 ==

== ENCOUNTER 2024-09-07 15:13 | Outpatient (REF) | payer MEDICARE, BC, SELFPAY ==
[2024-09-07 21:02] LABS: Anion Gap 8.6 mmol/L (3-11); BUN 19 mg/dL (7-18); CO2 30.4 mmol/L (21.0-32.0); CREATININE 0.8 mg/dL (0.70-1.30); Calcium 9.3 mg/dL (8.5-10.1); Chloride 94 mmol/L (98-107); Estimated GFR 91.15 (mL/min/1.73m2); Glucose 111 mg/dL (74-106); Magnesium 1.6 mg/dL (1.8-2.4); Potassium 3.3 mmol/L (3.5-5.1); Sodium 133 mmol/L (136-145)
== END 2024-09-07 15:14 | disposition home or self-care (01) ==
LOC: NCHCN 15:13
PROVIDERS: PCP Family Medicine; Visit Provider Family Medicine
DX: Z00.00 Encounter for general adult medical examination without abnormal findings (principal)
CPT/HCPCS: 80048; 83735

== ENCOUNTER → 2024-09-14 14:59 | Outpatient (BNVA) | payer MEDICARE, BC, SELFPAY | PROVIDERS: PCP Family Medicine; Referring Provider Family Medicine; Visit Provider Nurse Practitioner Gerontology | DX: Z46.6 Encounter for fitting and adjustment of urinary device (principal); R33.9 Retention of urine, unspecified; C61 Malignant neoplasm of prostate | CPT/HCPCS: 51702 ==

== ENCOUNTER → 2024-10-11 15:19 | Outpatient (BNVA) | payer MEDICARE, BC, SELFPAY | PROVIDERS: PCP Family Medicine; Referring Provider Family Medicine; Visit Provider Urology | DX: Z46.6 Encounter for fitting and adjustment of urinary device (principal); R33.9 Retention of urine, unspecified; Z98.890 Other specified postprocedural states | CPT/HCPCS: 51702 ==

== ENCOUNTER → 2024-11-08 14:23 | Outpatient (BNVA) | payer MEDICARE, BC, SELFPAY | PROVIDERS: PCP Family Medicine; Referring Provider Family Medicine; Visit Provider Nurse Practitioner Gerontology | DX: C61 Malignant neoplasm of prostate (principal); R33.9 Retention of urine, unspecified | CPT/HCPCS: 51702 ==

== ENCOUNTER → 2024-12-06 14:46 | Outpatient (BNVA) | payer MEDICARE, BC, SELFPAY | PROVIDERS: PCP Family Medicine; Referring Provider Family Medicine; Visit Provider Nurse Practitioner Gerontology | DX: C61 Malignant neoplasm of prostate (principal); R33.9 Retention of urine, unspecified | CPT/HCPCS: 51702 ==

== ENCOUNTER → 2025-01-03 14:48 | Outpatient (BNVA) | payer MEDICARE, BC, SELFPAY | PROVIDERS: PCP Family Medicine; Referring Provider Family Medicine; Visit Provider Nurse Practitioner Gerontology | DX: C61 Malignant neoplasm of prostate (principal); R33.9 Retention of urine, unspecified | CPT/HCPCS: 51702 ==

== ENCOUNTER → 2025-01-31 14:15 | Outpatient (BNVA) | payer MEDICARE, BC, SELFPAY | PROVIDERS: PCP Family Medicine; Referring Provider Family Medicine; Visit Provider Nurse Practitioner Gerontology | DX: Z46.6 Encounter for fitting and adjustment of urinary device (principal); C61 Malignant neoplasm of prostate; R33.9 Retention of urine, unspecified | CPT/HCPCS: 51702 ==

== ENCOUNTER → 2025-02-28 14:19 | Outpatient (BNVA) | payer MEDICARE, BC, SELFPAY | PROVIDERS: PCP Family Medicine; Referring Provider Family Medicine; Visit Provider Nurse Practitioner Gerontology | DX: C61 Malignant neoplasm of prostate (principal); R33.9 Retention of urine, unspecified; Z46.6 Encounter for fitting and adjustment of urinary device | CPT/HCPCS: 51702 ==